=== PATIENT | female | born 1960 | race Caucasian/White ===

== ENCOUNTER → 2018-03-06 12:08 | Outpatient (CLI) | payer OTHER, BC, SELFPAY ==
--- NOTE | 2018-03-06 | DI.CT.S_ITS ---
PROCEDURE: CT CHEST W CON INDICATIONS: MASS OF THORACIC STRUCTURE TECHNIQUE: After the administration of intravenous contrast, 5 mm thick sections acquired from the pulmonary apices to the posterior costophrenic angles. 7 mm thick coronal and sagittal MIP reformats were acquired. For radiation dose reduction, the following was used: automated exposure control, adjustment of mA and/or kV according to patient size. COMPARISON: None. FINDINGS: Image quality: Excellent. Lungs and pleura: Trace air space opacities are present within the superior segment of the left lower lobe (series 3, image 26). These likely represent trace atelectasis or mild aspiration. No other acute air space opacities. No pulmonary nodules. No pleural effusion or pneumothorax. Mediastinum: Heart size is normal. No pericardial effusion. No mediastinal or hilar adenopathy by size criteria. Thoracic aorta and central pulmonary arteries are normal in size. Esophagus is normal in caliber. No hiatal hernia. Bones and chest wall: No suspicious bony lesions. No vertebral body compression fractures. No axillary or supraclavicular adenopathy by size criteria. Thyroid gland is unremarkable. An ill-defined low density cystic lesion is present anterior to the T4 vertebral body which measures 1.8 x 1.1 x 2.2 cm (series 2, image 15 and series 4, image 35). Prior images are not available for comparison. Abdomen: A low density cystic lesion is present within the posterior aspect of the right lower lobe. This is described on the prior CT report from 01/06/16. Visualized upper abdominal solid organs appear normal. Upper abdominal bowel loops are normal in caliber. IMPRESSION: 1. No acute cardiopulmonary findings. 2. Low-density cystic lesion anterior to the T4 vertebral body. No prior images are available for exact comparison; however based on the report, this finding is likely similar in size to the prior study. If prior images are uploaded at a later date, an addendum can be issued comparing the current study with the prior images. Dictated by: Marva Farrell M.D. on 03/06/2018 at 12:33 Approved by: Marva Farrell M.D. on 03/06/2018 at 12:44
== END ==
PROVIDERS: Family Provider Family Medicine; PCP Family Medicine; Visit Provider Family Medicine
DX: M48.8X4 Other specified spondylopathies, thoracic region (principal)
CPT/HCPCS: 71260

== ENCOUNTER → 2018-03-08 08:54 | Outpatient (CLI) | payer OTHER, BC, SELFPAY ==
--- NOTE | 2018-03-08 | DI.MRI.S_ITS ---
PROCEDURE: MR HEAD/BRAIN WO CON INDICATIONS: HEADACHES TECHNIQUE: Noncontrast axial T1 spin echo, axial T2 fast spin echo, sagittal and axial FLAIR, coronal T2 fast spin echo, axial gradient echo, axial diffusion and ADC through the brain. COMPARISON: None. FINDINGS: Image quality: Suboptimal evaluation due to signal void artifact originating from the right face. This severely degrades the diffusion-weighted and gradient-echo pulse sequences CSF Spaces: Basal cisterns are patent. No extra-axial fluid collections. Ventricles are normal in size and shape. Brain: No intracranial masses or hemorrhage. Incidentally noted low-lying cerebellar tonsils. No definite cord signal changes identified however limited evaluation given exam protocol and contrast-enhanced cervical spine MRI could be considered. Amador/white matter interface is normal. Brainstem appears normal. Diffusion-weighted images demonstrate no acute ischemic insult. No chronic ischemic insults. Normal intravascular flow voids are present. Skull and face: Calvarium has normal marrow signal. Orbits appear normal. Sinuses: Mastoids appear clear. There is mild left maxillary sinus disease, not well-visualized IMPRESSION: Low lying cerebellar tonsils. Please correlate clinically. Mild left maxillary sinus disease, not well-visualized and could be followed up with sinus CT as clinically warranted. Dictated by: Dilshad Monet M.D. on 03/08/2018 at 8:38 Approved by: Dilshad Monet M.D. on 03/08/2018 at 8:45
== END ==
PROVIDERS: PCP Family Medicine; Visit Provider Family Medicine
DX: R51 Headache (principal); J32.0 Chronic maxillary sinusitis
CPT/HCPCS: 70551

== ENCOUNTER → 2018-03-14 12:08 | Outpatient (CLI) | payer OTHER, BC, SELFPAY ==
--- NOTE | 2018-03-14 13:33 | PM.TREADMILL ---
Cardiac Stress Test Report Referral & Results Date Patient Seen: 03/14/18 Time Patient Seen: 13:33 Requesting provider: Ksenia Marcus Indication: Chest pain Rest ECG: Unremarkable Procedure Note: Today following both written and verbal informed consent the patient was exercised according to a standard Isra protocol patient went for a total of 7 min 3 sec achieving a maximum heart rate of 175 maximum systolic blood pressure of 170. This is approximately 10.1 METS. Exercise was terminated at this point because of targets were met and patient had difficulty keeping up. Patient was also given Cardiolite through a previously started Hep-Lock IV by the injection maintenance technician approximately 1 minute prior to the cessation of exercise. There are no ST segment changes noted Normal heart rate blood pressure response Rare PAC was identified in recovery only Functional aerobic impairment rated about 0 on the active scale Impression: No evidence of ischemia. Perfusion imaging to be reported separately Please note: Actual ECG tracings can be found in the PACS system.
--- NOTE | 2018-03-15 16:35 | DI.NM.S_ITS ---
DATE OF SERVICE: 03/14/2018 PROCEDURE: Exercise perfusion study. INDICATIONS: Exertional chest pain with underlying hyperlipidemia, family history of coronary artery disease. RADIOPHARMACEUTICAL: 25.0 mCi technetium-99m Myoview IV was injected at stress and 26.9 mCi technetium-99m Myoview IV was injected at rest. CARDIAC STRESS: Patient underwent exercise perfusion study under the supervision of an attending staff. She walked on Isra protocol for 7 minutes 03 seconds achieved 107% of target heart rate with normal blood pressure response as well as 10.1 METs of workload. Functional aerobic impairment, 0% on active scale. No significant symptoms were reported. Baseline EKG revealed sinus rhythm. During stress, there was a nonspecific ST-T changes. No convincing ischemic changes. Occasional PACs. No significant sustained arrhythmias. RAW DATA: There appears to be breast shadow seen. GATED STUDY: Stress ejection fraction 76% and stress LV ejection fraction 91%. No obvious wall motion abnormalities. No transient ischemic dilatation. TID ratio is 0.37, which is within normal limits. Resting end-diastolic volume is 75 mL. Lung/heart ratio is 0.29, which is within normal limits. MYOCARDIAL PERFUSION SCAN: Resting supine images revealed small-sized mildly decreased perfusion of mid and distal anterior wall, as well as distal anteroseptum. During stress supine, there was normal myocardial perfusion. During stress prone, there was mildly decreased perfusion of distal anteroseptum. CONCLUSION: I will call this study a normal myocardial perfusion study. Stress supine images did not reveal any convincing ischemia or infarction. Stress supine images appear better than resting supine images. Breast shadow seen on raw images. Normal wall motion goes against the diagnosis of previous myocardial infarction. Patient walked on Isra protocol for 7 minutes 03 seconds. As far as perfusion scan is concerned, this is a low-risk myocardial perfusion scan. Ninfa Carranza - MAC/thierno/ doc#: [id number]/job#: [id number] dd: 03/15/2018 12:32:00 dt: 03/15/2018 16:23:00 DICTATING MD/COPIES TO: Crissy Sanchez MD COPIES MNE: PALV
== END ==
PROVIDERS: PCP Family Medicine; Visit Provider Family Medicine
DX: R07.9 Chest pain, unspecified (principal)
CPT/HCPCS: 78452; 93016; 93017; 93018; A9502

== ENCOUNTER 2018-03-20 10:30 | Outpatient (RCR) | payer OTHER, BC, SELFPAY ==
--- NOTE | 2018-02-17 13:38 | PT.OIE ---
Current Diagnoses Headache (02/17/18) Provider Visit Care Team Role Provider Type Kwadwo Sharif MD Family Provider Non-Staff Primary Care Provider Specialty: Family Practice Address: [address], [address], [place], [address] Email: Ksenia Marcus DO Attending Provider Non-Staff Specialty: Family Practice Address: [address], [place], [address] Email: Physical Therapy Initial Evaluation PT-OP-A Visit Information Start: 02/17/18 08:41 Freq: Status: Active Protocol: Document 02/17/18 10:32 [facility] (Rec: 02/17/18 11:34 [facility] [id number]) Out-Patient Physical Therapy Visit Information Visit Information Visit Type Initial Evaluation Visit Start Time 10:30 Visit Stop Time 11:20 Total Visit Minutes 50 Visit Number 1 Number of ECONOMIC ADVISER Visits 0 PT-OP-B Current Condition Start: 02/17/18 08:41 Freq: Status: Active Protocol: Document 02/17/18 10:32 [facility] (Rec: 02/17/18 13:37 [facility] [id number]) Current Condition History of Current Condition Onset Date ~6 weeks ago Current Complaints AVERY & suboccipital pain History of Current Condition Pt reports suboccipital pain & AVERY on L side that goes to behind L eye. Pt reports a feeling of kind of dizzy like trying to center herself all the time. 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 Pain has not subsided with dec stress & dec driving & pt unsure when during a day or what caused her pain to start. Pt is mostly able to sleep but reports recently she has woken up d/t pain a couple of nights. Prior Treatments and Tests Xray performed Future Testing and Treatments Planned head MRI when pt gets back in 1 week Treatment Goals Patient/Caregiver Goals Get pain to go away especially before Mar 27 when she starts work again as she gets debilitated when AVERY get bad. Return to walks. PT-OP-C Subjective Start: 02/17/18 08:41 Freq: Status: Active Protocol: Document 02/17/18 10:32 [facility] (Rec: 02/17/18 13:37 [facility] [id number]) Patient Questionnaires Neck Disability Index NDI Score 50 Neck Disability Index Impairment 40 to 59% Impaired (Score 20- 29) OP-PT Pain Assessment Location Left Neck Pain Location Details L suboccipital into L head & behind eye Intensity 8 Scale Used Numeric (1 - 10) Description- Other AVERY & pain shoots up Frequency Constant Pain Duration intensifies with certain motions Pain Aggravating Factors Coughing Other Pain Aggravating Factors bending over, sneezing, lauging, straining Other Pain Alleviating Factors alieve (800 mg every 4 hours) PT-OP-J Posture/Palpation/Skin Start: 02/17/18 08:41 Freq: Status: Active Protocol: Document 02/17/18 10:32 [facility] (Rec: 02/17/18 13:38 [facility] [id number]) Posture Evaluation Comments Posture Comments fwd head & neck Palpation Assessment Location One Palpation Location L cervical region: paraspinals , scalenes, SCM, UT, LS Palpation Findings Soft Tissue Tightness Muscle Guarding Tenderness Palpation Details C1 R rot and L shear & C2 L rot & R shear PT-OP-K Range of Motion Start: 02/17/18 08:41 Freq: Status: Active Protocol: Document 02/17/18 10:32 [facility] (Rec: 02/17/18 11:34 [facility] [id number]) Cervical Spine Range of Motion Cervical Spine Active Degrees Testing Position Sitting Flexion 56 Extension 58 Rotation Left 55 Rotation Right 58 Lateral Flexion Left 28 Lateral Flexion Right 28 Comments pain returning to neutral from flex, pain with ext, stretching contralaterally with SB; stretch R with rotation R PT-OP-L Special Tests Start: 02/17/18 08:41 Freq: Status: Active Protocol: Document 02/17/18 10:32 [facility] (Rec: 02/17/18 11:34 [facility] [id number]) Special Tests Cervical Spine Special Tests Spurling's Test Test Results neg Vertebral Artery Test Results neg B (pain suboccipital only) Alar Ligament Test Results neg Neural Special Tests- Upper Body Upper Limb Tension Test Test Results passive abd Comments 130 L; 150 R PT-OP-M Strength Start: 02/17/18 08:41 Freq: Status: Active Protocol: Document 02/17/18 10:32 [facility] (Rec: 02/17/18 11:34 [facility] [id number]) Shoulder Strength Shoulder Manual Muscle Testing Right Flexion 5 Normal Extension 5 Normal Abduction (C5) 5 Normal Adduction 5 Normal External Rotation 5 Normal Internal Rotation 5 Normal Horizontal Abduction 5 Normal Horizontal Adduction 5 Normal Left Flexion 5 Normal Extension 5 Normal Abduction (C5) 5 Normal Adduction 5 Normal External Rotation 5 Normal Internal Rotation 5 Normal Horizontal Abduction 5 Normal Horizontal Adduction 5 Normal PT-OP-Q Treatments Start: 02/17/18 08:41 Freq: Status: Active Protocol: Document 02/17/18 10:32 [facility] (Rec: 02/17/18 13:37 [facility] [id number]) Therapeutic Exercises Supine Exercises 1 Supine Exercise Name cervical retraction Side bilateral Sitting Exercises 1 Sitting Exercise Name LS, UT & scalene stretches PT-OP-T Assessment and Plan Start: 02/17/18 08:41 Freq: Status: Active Protocol: Document 02/17/18 10:32 [facility] (Rec: 02/17/18 13:37 [facility] [id number]) Physical Therapy Assessment Rehab Potential Rehabilitation Potential Good Evaluation Complexity Number of Personal Factors/Comorbidities 1-2 Number of Body Systems Impaired 4 or More Clinical Presentation at Evaluation Evolving Impairments Impairments Activity Tolerance Pain Posture ROM Soft Tissue Mobility Strength Goals Three Impairment functional tasks Certified Personal Chef Goal (LTG) Pt able to bend over without pain in neck & head LTG Duration 04/20/18 Two Impairment AVERY daily Short Term Goal (STG) AVERY 3x/week STG Duration 03/20/18 Certified Personal Chef Goal (LTG) no AVERY for 2 weeks LTG Duration 04/20/18 One Impairment ROM [facility] Goal (LTG) Full ROM to allow pt to look down and do normal tasks. LTG Duration 04/20/18 Physical Therapy Plan Frequency and Duration Frequency of Treatment 2x/Week Duration of Treatment 2 months Plan of Care Start Date 02/17/18 Plan of Care End Date 04/20/18 Therapeutic Interventions Therapeutic Interventions Home Exercise Program Joint Mobilizations Manual Therapy Self-Care/Home Management Soft Tissue Mobilization Taping Therapeutic Exercises Modalities Cold Pack/Ice Massage Electric Stimulation Hot Packs Ultrasound Next Visit Focus/Plan Next Note Type Treatment Note Next Visit Plan Soft tissue cervical spine; once cleared with MRI start upper cervical mobilizaitons
--- NOTE | 2018-02-17 13:39 | PT.OPPOC ---
Current Diagnoses Headache (02/17/18) Provider Visit Care Team Role Provider Type Kwadwo Sharif MD Family Provider Non-Staff Primary Care Provider Specialty: Family Practice Address: [address], [address], [place], [address] Email: Ksenia Marcus DO Attending Provider Non-Staff Specialty: [facility] Practice Address: [address], [place], [address] Email: Plan Of Care PT-OP-T Assessment and Plan Start: 02/17/18 08:41 Freq: Status: Active Protocol: Document 02/17/18 10:32 [facility] (Rec: 02/17/18 13:37 [facility] [id number]) Physical Therapy Assessment Rehab Potential Rehabilitation Potential Good Evaluation Complexity Number of Personal Factors/Comorbidities 1-2 Number of Body Systems Impaired 4 or More Clinical Presentation at Evaluation Evolving Impairments Impairments Activity Tolerance Pain Posture ROM Soft Tissue Mobility Strength Goals Three Impairment functional tasks Flag Maker Goal (LTG) Pt able to bend over without pain in neck & head LTG Duration 04/20/18 Two Impairment AVERY daily Short Term Goal (STG) AVERY 3x/week STG Duration 03/20/18 [facility] Goal (LTG) no AVERY for 2 weeks LTG Duration 04/20/18 One Impairment ROM Senior Care Goal (LTG) Full ROM to allow pt to look down and do normal tasks. LTG Duration 04/20/18 Physical Therapy Plan Frequency and Duration Frequency of Treatment 2x/Week Duration of Treatment 2 months Plan of Care Start Date 02/17/18 Plan of Care End Date 04/20/18 Therapeutic Interventions Therapeutic Interventions Home Exercise Program Joint Mobilizations Manual Therapy Self-Care/Home Management Soft Tissue Mobilization Taping Therapeutic Exercises Modalities Cold Pack/Ice Massage Electric Stimulation Hot Packs Ultrasound Next Visit Focus/Plan Next Note Type Treatment Note Next Visit Plan Soft tissue cervical spine; once cleared with MRI start upper cervical mobilizaitons Plan of Care Dates Plan of Care Start Date 02/17/18 Plan of Care End Date 04/20/18 Please Sign and Return: I have reviewed this Plan of Care and certify that the skilled therapy services above are required to meet the patient?s needs. Physician Signature Date Printed Name and Credentials Clinical Instructor Signature Printed Name and Credentials
--- NOTE | 2018-02-28 09:50 | PT.OTN ---
Current Diagnoses Headache (02/28/18) Physical Therapy Treatment Note PT-OP-A Visit Information Start: 02/17/18 08:41 Freq: Status: Active Protocol: Document 02/28/18 09:33 [facility] (Rec: 02/28/18 09:50 [facility] [id number]) Out-Patient Physical Therapy Visit Information Visit Information Visit Type Treatment Note Visit Start Time 09:05 Visit Stop Time 09:45 Total Visit Minutes 40 Visit Number 2 PT-OP-B Current Condition Start: 02/17/18 08:41 Freq: Status: Active Protocol: Document 02/17/18 10:32 [facility] (Rec: 02/17/18 13:37 [facility] [id number]) Current Condition History of Current Condition Onset Date ~6 weeks ago Current Complaints AVERY & suboccipital pain History of Current Condition Pt reports suboccipital pain & AVERY on L side that goes to behind L eye. Pt reports a feeling of kind of dizzy like trying to center herself all the time. 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 Pain has not subsided with dec stress & dec driving & pt unsure when during a day or what caused her pain to start. Pt is mostly able to sleep but reports recently she has woken up d/t pain a couple of nights. Prior Treatments and Tests Xray performed Future Testing and Treatments Planned head MRI when pt gets back in 1 week Treatment Goals Patient/Caregiver Goals Get pain to go away especially before Mar 27 when she starts work again as she gets debilitated when AVERY get bad. Return to walks. PT-OP-C Subjective Start: 02/17/18 08:41 Freq: Status: Active Protocol: Document 02/28/18 09:33 [facility] (Rec: 02/28/18 09:50 [facility] [id number]) OP-PT Subjective Patient Comments Patient Comments Reports she only did her exercises a little on vacation . Notes she took a lot of alieve PT-OP-J Posture/Palpation/Skin Start: 02/17/18 08:41 Freq: Status: Active Protocol: Document 02/17/18 10:32 [facility] (Rec: 02/17/18 13:38 [facility] [id number]) Posture Evaluation Comments Posture Comments fwd head & neck Palpation Assessment Location One Palpation Location L cervical region: paraspinals , scalenes, SCM, UT, LS Palpation Findings Soft Tissue Tightness Muscle Guarding Tenderness Palpation Details C1 R rot and L shear & C2 L rot & R shear PT-OP-K Range of Motion Start: 02/17/18 08:41 Freq: Status: Active Protocol: Document 02/17/18 10:32 [facility] (Rec: 02/17/18 11:34 [facility] [id number]) Cervical Spine Range of Motion Cervical Spine Active Degrees Testing Position Sitting Flexion 56 Extension 58 Rotation Left 55 Rotation Right 58 Lateral Flexion Left 28 Lateral Flexion Right 28 Comments pain returning to neutral from flex, pain with ext, stretching contralaterally with SB; stretch R with rotation R PT-OP-L Special Tests Start: 02/17/18 08:41 Freq: Status: Active Protocol: Document 02/17/18 10:32 [facility] (Rec: 02/17/18 11:34 [facility] [id number]) Special Tests Cervical Spine Special Tests Spurling's Test Test Results neg Vertebral Artery Test Results neg B (pain suboccipital only) Alar Ligament Test Results neg Neural Special Tests- Upper Body Upper Limb Tension Test Test Results passive abd Comments 130 L; 150 R PT-OP-M Strength Start: 02/17/18 08:41 Freq: Status: Active Protocol: Document 02/17/18 10:32 [facility] (Rec: 02/17/18 11:34 [facility] [id number]) Shoulder Strength Shoulder Manual Muscle Testing Right Flexion 5 Normal Extension 5 Normal Abduction (C5) 5 Normal Adduction 5 Normal External Rotation 5 Normal Internal Rotation 5 Normal Horizontal Abduction 5 Normal Horizontal Adduction 5 Normal Left Flexion 5 Normal Extension 5 Normal Abduction (C5) 5 Normal Adduction 5 Normal External Rotation 5 Normal Internal Rotation 5 Normal Horizontal Abduction 5 Normal Horizontal Adduction 5 Normal PT-OP-Q Treatments Start: 02/17/18 08:41 Freq: Status: Active Protocol: Document 02/28/18 09:33 [facility] (Rec: 02/28/18 09:50 [facility] [id number]) Therapeutic Exercises Supine Exercises 3 Supine Exercise Name axial elongation 2 Supine Exercise Name foam roll: Habd, flex, abd Side bilateral Reps/Minutes 10 each Sidelying Exercises 1 Sidelying Exercise Name roll & reach Reps/Minutes 5 Sitting Exercises 1 Sitting Exercise Name LS, UT & scalene stretches Standing Exercises 1 Standing Exercise Name corner pec stretch Reps/Minutes 30 sec hold Manual Therapy Treatment Soft Tissue Mobilization 2 Body Location SOR Mobilization Type Sustained Pressure Intensity/Depth Moderate 1 Body Location LS, UT, scalenes Mobilization Type Rolling Intensity/Depth Moderate Joint Mobilizations 1 Joint 1st rib Direction caudal Body Position Sitting Comments FM w/ SB PT-OP-T Assessment and Plan Start: 02/17/18 08:41 Freq: Status: Active Protocol: Document 02/28/18 09:33 [facility] (Rec: 02/28/18 09:50 [facility] [id number]) Physical Therapy Assessment Goals Three Impairment functional tasks [facility] Goal (LTG) Pt able to bend over without pain in neck & head LTG Duration 04/20/18 Two Impairment AVERY daily Short Term Goal (STG) AVERY 3x/week STG Duration 03/20/18 Stone Carver Goal (LTG) no AVERY for 2 weeks LTG Duration 04/20/18 One Impairment ROM [facility] Goal (LTG) Full ROM to allow pt to look down and do normal tasks. LTG Duration 04/20/18 Assessment Summary Assessment Pt required min cueing for old exercises and had good stretches with new exercises, but no pain. Pt had tightness in B cervical mm today. Physical Therapy Plan Frequency and Duration Frequency of Treatment 2x/Week Duration of Treatment 2 months Plan of Care Start Date 02/17/18 Plan of Care End Date 04/20/18 Next Visit Focus/Plan Next Note Type Treatment Note Next Visit Plan Soft tissue cervical spine; once cleared with MRI start upper cervical mobilizaitons; cranial fascial release
--- NOTE | 2018-03-03 16:27 | PT.OTN ---
Current Diagnoses Headache (03/03/18) Physical Therapy Treatment Note PT-OP-A Visit Information Start: 02/17/18 08:41 Freq: Status: Active Protocol: Document 03/03/18 15:15 [facility] (Rec: 03/03/18 16:27 [facility] [id number]) Out-Patient Physical Therapy Visit Information Visit Information Visit Type Treatment Note Visit Start Time 15:20 Visit Stop Time 16:05 Total Visit Minutes 45 Visit Number 3 Number of HEALTHCARE APPLICATIONS ANALYST Visits 0 PT-OP-B Current Condition Start: 02/17/18 08:41 Freq: Status: Active Protocol: Document 02/17/18 10:32 [facility] (Rec: 02/17/18 13:37 [facility] [id number]) Current Condition History of Current Condition Onset Date ~6 weeks ago Current Complaints AVERY & suboccipital pain History of Current Condition Pt reports suboccipital pain & AVERY on L side that goes to behind L eye. Pt reports a feeling of kind of dizzy like trying to center herself all the time. 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 Pain has not subsided with dec stress & dec driving & pt unsure when during a day or what caused her pain to start. Pt is mostly able to sleep but reports recently she has woken up d/t pain a couple of nights. Prior Treatments and Tests Xray performed Future Testing and Treatments Planned head MRI when pt gets back in 1 week Treatment Goals Patient/Caregiver Goals Get pain to go away especially before Mar 27 when she starts work again as she gets debilitated when AVERY get bad. Return to walks. PT-OP-C Subjective Start: 02/17/18 08:41 Freq: Status: Active Protocol: Document 03/03/18 15:15 [facility] (Rec: 03/03/18 16:27 [facility] [id number]) OP-PT Subjective Patient Comments Patient Comments More compliant to her HEP, trying to be more aware of her posture, not sure if helping. Pain/AVERY 10 today. PT-OP-J Posture/Palpation/Skin Start: 02/17/18 08:41 Freq: Status: Active Protocol: Document 02/17/18 10:32 [facility] (Rec: 02/17/18 13:38 [facility] [id number]) Posture Evaluation Comments Posture Comments fwd head & neck Palpation Assessment Location One Palpation Location L cervical region: paraspinals , scalenes, SCM, UT, LS Palpation Findings Soft Tissue Tightness Muscle Guarding Tenderness Palpation Details C1 R rot and L shear & C2 L rot & R shear PT-OP-K Range of Motion Start: 02/17/18 08:41 Freq: Status: Active Protocol: Document 02/17/18 10:32 [facility] (Rec: 02/17/18 11:34 [facility] [id number]) Cervical Spine Range of Motion Cervical Spine Active Degrees Testing Position Sitting Flexion 56 Extension 58 Rotation Left 55 Rotation Right 58 Lateral Flexion Left 28 Lateral Flexion Right 28 Comments pain returning to neutral from flex, pain with ext, stretching contralaterally with SB; stretch R with rotation R PT-OP-L Special Tests Start: 02/17/18 08:41 Freq: Status: Active Protocol: Document 02/17/18 10:32 [facility] (Rec: 02/17/18 11:34 [facility] [id number]) Special Tests Cervical Spine Special Tests Spurling's Test Test Results neg Vertebral Artery Test Results neg B (pain suboccipital only) Alar Ligament Test Results neg Neural Special Tests- Upper Body Upper Limb Tension Test Test Results passive abd Comments 130 L; 150 R PT-OP-M Strength Start: 02/17/18 08:41 Freq: Status: Active Protocol: Document 02/17/18 10:32 [facility] (Rec: 02/17/18 11:34 [facility] [id number]) Shoulder Strength Shoulder Manual Muscle Testing Right Flexion 5 Normal Extension 5 Normal Abduction (C5) 5 Normal Adduction 5 Normal External Rotation 5 Normal Internal Rotation 5 Normal Horizontal Abduction 5 Normal Horizontal Adduction 5 Normal Left Flexion 5 Normal Extension 5 Normal Abduction (C5) 5 Normal Adduction 5 Normal External Rotation 5 Normal Internal Rotation 5 Normal Horizontal Abduction 5 Normal Horizontal Adduction 5 Normal PT-OP-Q Treatments Start: 02/17/18 08:41 Freq: Status: Active Protocol: Document 03/03/18 15:15 [facility] (Rec: 03/03/18 16:27 [facility] [id number]) Cardio Equipment Upper Body Ergometer (UBE) Duration (Minutes) 4 RPM 90 Other fwd/bck Therapeutic Exercises Supine Exercises 3 Supine Exercise Name axial elongation Sidelying Exercises 1 Sidelying Exercise Name roll & reach Reps/Minutes 5 Comments with gentle manual cues for segmental mvmt Sitting Exercises 1 Sitting Exercise Name LS, UT & scalene stretches Standing Exercises 3 Standing Exercise Name rows, shld ext Equipment Used L1 TB Reps/Minutes 10x Comments verbal and manual cues 2 Standing Exercise Name postural isometric Equipment Used wall Reps/Minutes 5x Manual Therapy Treatment Soft Tissue Mobilization 4 Body Location cervical spine Mobilization Type Rolling Intensity/Depth gentle Body Position Supine 3 Body Location manual pec major stretch 2 Body Location SOR Mobilization Type Sustained Pressure Intensity/Depth Moderate 1 Body Location LS, UT, scalenes Mobilization Type Rolling Intensity/Depth Moderate Joint Mobilizations 2 Joint T2-T8 Direction PA Grade II Body Position Prone Comments prone pillow PT-OP-T Assessment and Plan Start: 02/17/18 08:41 Freq: Status: Active Protocol: Document 03/03/18 15:15 [facility] (Rec: 03/03/18 16:27 [facility] [id number]) Physical Therapy Assessment Assessment Summary Assessment Reports SOR feels good, was verbally instructed in use of tennis balls. Maybe a little better after treatment. Tightness left greater than right thoracic musculature with decreased joint movement on left. Physical Therapy Plan Frequency and Duration Frequency of Treatment 2x/Week Duration of Treatment 2 months Plan of Care Start Date 02/17/18 Plan of Care End Date 04/20/18 Therapeutic Interventions Therapeutic Interventions Home Exercise Program Joint Mobilizations Manual Therapy Self-Care/Home Management Soft Tissue Mobilization Taping Therapeutic Exercises Modalities Cold Pack/Ice Massage Electric Stimulation Hot Packs Ultrasound Next Visit Focus/Plan Next Note Type Treatment Note Next Visit Plan Assess response to last treatment, review new ex and issue handout and theraband if christian well.
--- NOTE | 2018-03-10 16:27 | PT.OTN ---
Current Diagnoses Headache (03/10/18) Physical Therapy Treatment Note PT-OP-A Visit Information Start: 02/17/18 08:41 Freq: Status: Active Protocol: Document 03/10/18 15:17 [facility] (Rec: 03/10/18 16:24 [facility] [id number]) Out-Patient Physical Therapy Visit Information Visit Information Visit Type Treatment Note Visit Start Time 15:17 Visit Stop Time 16:07 Total Visit Minutes 50 Visit Number 4 Number of NAPPER TENDER Visits 0 PT-OP-B Current Condition Start: 02/17/18 08:41 Freq: Status: Active Protocol: Document 02/17/18 10:32 [facility] (Rec: 02/17/18 13:37 [facility] [id number]) Current Condition History of Current Condition Onset Date ~6 weeks ago Current Complaints AVERY & suboccipital pain History of Current Condition Pt reports suboccipital pain & AVERY on L side that goes to behind L eye. Pt reports a feeling of kind of dizzy like trying to center herself all the time. 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 Pain has not subsided with dec stress & dec driving & pt unsure when during a day or what caused her pain to start. Pt is mostly able to sleep but reports recently she has woken up d/t pain a couple of nights. Prior Treatments and Tests Xray performed Future Testing and Treatments Planned head MRI when pt gets back in 1 week Treatment Goals Patient/Caregiver Goals Get pain to go away especially before Mar 27 when she starts work again as she gets debilitated when AVERY get bad. Return to walks. PT-OP-C Subjective Start: 02/17/18 08:41 Freq: Status: Active Protocol: Document 03/10/18 15:17 [facility] (Rec: 03/10/18 16:08 [facility] [id number]) OP-PT Subjective Patient Comments Patient Comments Reports taking less Ibuprofen, pain not quite as intense. Sees physician on 03/23/18, has already talked with nurse who discussed results of tests: regarding cyst T4 which appears to be same size as previously tested, and low- lying cerebellar tonsils which could be causing symptoms. Having stress test next week. PT-OP-J Posture/Palpation/Skin Start: 02/17/18 08:41 Freq: Status: Active Protocol: Document 02/17/18 10:32 [facility] (Rec: 02/17/18 13:38 [facility] [id number]) Posture Evaluation Comments Posture Comments fwd head & neck Palpation Assessment Location One Palpation Location L cervical region: paraspinals , scalenes, SCM, UT, LS Palpation Findings Soft Tissue Tightness Muscle Guarding Tenderness Palpation Details C1 R rot and L shear & C2 L rot & R shear PT-OP-K Range of Motion Start: 02/17/18 08:41 Freq: Status: Active Protocol: Document 02/17/18 10:32 [facility] (Rec: 02/17/18 11:34 [facility] [id number]) Cervical Spine Range of Motion Cervical Spine Active Degrees Testing Position Sitting Flexion 56 Extension 58 Rotation Left 55 Rotation Right 58 Lateral Flexion Left 28 Lateral Flexion Right 28 Comments pain returning to neutral from flex, pain with ext, stretching contralaterally with SB; stretch R with rotation R PT-OP-L Special Tests Start: 02/17/18 08:41 Freq: Status: Active Protocol: Document 02/17/18 10:32 [facility] (Rec: 02/17/18 11:34 [facility] [id number]) Special Tests Cervical Spine Special Tests Spurling's Test Test Results neg Vertebral Artery Test Results neg B (pain suboccipital only) Alar Ligament Test Results neg Neural Special Tests- Upper Body Upper Limb Tension Test Test Results passive abd Comments 130 L; 150 R PT-OP-M Strength Start: 02/17/18 08:41 Freq: Status: Active Protocol: Document 02/17/18 10:32 [facility] (Rec: 02/17/18 11:34 [facility] [id number]) Shoulder Strength Shoulder Manual Muscle Testing Right Flexion 5 Normal Extension 5 Normal Abduction (C5) 5 Normal Adduction 5 Normal External Rotation 5 Normal Internal Rotation 5 Normal Horizontal Abduction 5 Normal Horizontal Adduction 5 Normal Left Flexion 5 Normal Extension 5 Normal Abduction (C5) 5 Normal Adduction 5 Normal External Rotation 5 Normal Internal Rotation 5 Normal Horizontal Abduction 5 Normal Horizontal Adduction 5 Normal PT-OP-Q Treatments Start: 02/17/18 08:41 Freq: Status: Active Protocol: Document 03/10/18 15:17 [facility] (Rec: 03/10/18 16:24 [facility] [id number]) Cardio Equipment Upper Body Ergometer (UBE) Duration (Minutes) 4 RPM 90 Other fwd/bck Therapeutic Exercises Supine Exercises 3 Supine Exercise Name axial elongation 2 Supine Exercise Name foam roll: Habd, flex, abd Side bilateral Reps/Minutes 10 each 1 Supine Exercise Name cervical retraction Side bilateral Sidelying Exercises 1 Sidelying Exercise Name roll & reach Reps/Minutes 5 Comments with gentle manual cues for segmental mvmt Sitting Exercises 1 Comments doing as HEP Standing Exercises 3 Standing Exercise Name rows, shld ext Equipment Used L1 TB Reps/Minutes 10x Comments verbal and manual cues 2 Standing Exercise Name postural isometric Equipment Used wall Reps/Minutes 5x 1 Comments HEP Manual Therapy Treatment Soft Tissue Mobilization 2 Body Location SOR Mobilization Type Sustained Pressure Intensity/Depth Moderate 1 Body Location LS, UT, scalenes Mobilization Type Rolling Intensity/Depth Moderate Self-Care/Home Management Treatment Education Patient Education Home Exercise Program Other Education issued updated written HEP, reviewed use of tennis balls for SOR. PT-OP-T Assessment and Plan Start: 02/17/18 08:41 Freq: Status: Active Protocol: Document 03/10/18 15:17 [facility] (Rec: 03/10/18 16:24 [facility] [id number]) Physical Therapy Assessment Assessment Summary Assessment Some progress with pain, though persists. MRI indicated low-lying cerebellar tonsils which could be a factor in her symptoms. Patient reports some relief with SOR and gentle manual CTx . May benefit from mechanical CTx if cleared by physician. Physical Therapy Plan Frequency and Duration Frequency of Treatment 2x/Week Duration of Treatment 2 months Plan of Care Start Date 02/17/18 Plan of Care End Date 04/20/18 Therapeutic Interventions Therapeutic Interventions Home Exercise Program Joint Mobilizations Manual Therapy Self-Care/Home Management Soft Tissue Mobilization Taping Therapeutic Exercises Modalities Cold Pack/Ice Massage Electric Stimulation Hot Packs Ultrasound Next Visit Focus/Plan Next Note Type Treatment Note Next Visit Plan Request approval for mechanical CTx, continue with ther ex, manual therapy, HEP progression as tolerated.
--- NOTE | 2018-03-17 11:27 | PT.OTN ---
Current Diagnoses Headache (03/17/18) Physical Therapy Treatment Note PT-OP-A Visit Information Start: 02/17/18 08:41 Freq: Status: Active Protocol: Document 03/17/18 10:23 [facility] (Rec: 03/17/18 11:27 [facility] [id number]) Out-Patient Physical Therapy Visit Information Visit Information Visit Type Treatment Note Visit Start Time 10:30 Visit Stop Time 11:15 Total Visit Minutes 45 Visit Number 5 Number of TRUSS MAKER Visits 0 PT-OP-B Current Condition Start: 02/17/18 08:41 Freq: Status: Active Protocol: Document 02/17/18 10:32 [facility] (Rec: 02/17/18 13:37 [facility] [id number]) Current Condition History of Current Condition Onset Date ~6 weeks ago Current Complaints AVERY & suboccipital pain History of Current Condition Pt reports suboccipital pain & AVERY on L side that goes to behind L eye. Pt reports a feeling of kind of dizzy like trying to center herself all the time. 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 Pain has not subsided with dec stress & dec driving & pt unsure when during a day or what caused her pain to start. Pt is mostly able to sleep but reports recently she has woken up d/t pain a couple of nights. Prior Treatments and Tests Xray performed Future Testing and Treatments Planned head MRI when pt gets back in 1 week Treatment Goals Patient/Caregiver Goals Get pain to go away especially before Mar 27 when she starts work again as she gets debilitated when AVERY get bad. Return to walks. PT-OP-C Subjective Start: 02/17/18 08:41 Freq: Status: Active Protocol: Document 03/17/18 10:23 [facility] (Rec: 03/17/18 11:27 [facility] [id number]) OP-PT Subjective Patient Comments Patient Comments Last night her AVERY woke her up, but is not taking advil as often. Bending over is less painful, but constant head pressure still. [place] pain behind eyes when moving eyes. PT-OP-J Posture/Palpation/Skin Start: 02/17/18 08:41 Freq: Status: Active Protocol: Document 02/17/18 10:32 [facility] (Rec: 02/17/18 13:38 [facility] [id number]) Posture Evaluation Comments Posture Comments fwd head & neck Palpation Assessment Location One Palpation Location L cervical region: paraspinals , scalenes, SCM, UT, LS Palpation Findings Soft Tissue Tightness Muscle Guarding Tenderness Palpation Details C1 R rot and L shear & C2 L rot & R shear PT-OP-K Range of Motion Start: 02/17/18 08:41 Freq: Status: Active Protocol: Document 02/17/18 10:32 [facility] (Rec: 02/17/18 11:34 [facility] [id number]) Cervical Spine Range of Motion Cervical Spine Active Degrees Testing Position Sitting Flexion 56 Extension 58 Rotation Left 55 Rotation Right 58 Lateral Flexion Left 28 Lateral Flexion Right 28 Comments pain returning to neutral from flex, pain with ext, stretching contralaterally with SB; stretch R with rotation R PT-OP-L Special Tests Start: 02/17/18 08:41 Freq: Status: Active Protocol: Document 02/17/18 10:32 [facility] (Rec: 02/17/18 11:34 [facility] [id number]) Special Tests Cervical Spine Special Tests Spurling's Test Test Results neg Vertebral Artery Test Results neg B (pain suboccipital only) Alar Ligament Test Results neg Neural Special Tests- Upper Body Upper Limb Tension Test Test Results passive abd Comments 130 L; 150 R PT-OP-M Strength Start: 02/17/18 08:41 Freq: Status: Active Protocol: Document 02/17/18 10:32 [facility] (Rec: 02/17/18 11:34 [facility] [id number]) Shoulder Strength Shoulder Manual Muscle Testing Right Flexion 5 Normal Extension 5 Normal Abduction (C5) 5 Normal Adduction 5 Normal External Rotation 5 Normal Internal Rotation 5 Normal Horizontal Abduction 5 Normal Horizontal Adduction 5 Normal Left Flexion 5 Normal Extension 5 Normal Abduction (C5) 5 Normal Adduction 5 Normal External Rotation 5 Normal Internal Rotation 5 Normal Horizontal Abduction 5 Normal Horizontal Adduction 5 Normal PT-OP-Q Treatments Start: 02/17/18 08:41 Freq: Status: Active Protocol: Document 03/17/18 10:23 [facility] (Rec: 03/17/18 11:27 [facility] [id number]) Cardio Equipment Upper Body Ergometer (UBE) Duration (Minutes) 4 RPM 90 Other fwd/bck Therapeutic Exercises Supine Exercises 3 Supine Exercise Name axial elongation 2 Supine Exercise Name foam roll: Habd, flex, abd Side bilateral Reps/Minutes 10 each Comments HEP 1 Supine Exercise Name cervical retraction Side bilateral Comments HEP Sidelying Exercises 1 Sidelying Exercise Name roll & reach Reps/Minutes 5 Comments HEP Standing Exercises 3 Standing Exercise Name rows, shld ext Equipment Used L1 TB Reps/Minutes 10x Comments verbal and manual cues 2 Standing Exercise Name postural roll up w/90/90 ER Equipment Used wall Reps/Minutes 10 Manual Therapy Treatment Soft Tissue Mobilization 4 Body Location cervical spine Mobilization Type Rolling Intensity/Depth Moderate Body Position Supine 2 Body Location SOR Mobilization Type Sustained Pressure Intensity/Depth Moderate 1 Body Location LS, UT, scalenes Mobilization Type Rolling Intensity/Depth Moderate Joint Mobilizations 1 Joint 1st rib Direction caudal Body Position Supine Comments FM w/ SB PT-OP-T Assessment and Plan Start: 02/17/18 08:41 Freq: Status: Active Protocol: Document 03/17/18 10:23 [facility] (Rec: 03/17/18 11:27 [facility] [id number]) Physical Therapy Assessment Goals Three Impairment functional tasks [facility] Goal (LTG) Pt able to bend over without pain in neck & head LTG Duration 04/20/18 Two Impairment AVERY daily Short Term Goal (STG) AVERY 3x/week STG Duration 03/20/18 [facility] Goal (LTG) no AVERY for 2 weeks LTG Duration 04/20/18 One Impairment ROM Industrial Radiographer Goal (LTG) Full ROM to allow pt to look down and do normal tasks. LTG Duration 04/20/18 Assessment Summary Assessment Pt had inc tightness in R>L side. Pt able do most exercises with min cueing. Added postural roll up for postural stability. Physical Therapy Plan Frequency and Duration Frequency of Treatment 2x/Week Duration of Treatment 2 months Plan of Care Start Date 02/17/18 Plan of Care End Date 04/20/18 Next Visit Focus/Plan Next Note Type Treatment Note Next Visit Plan Request approval for mechanical CTx, continue with ther ex, manual therapy, HEP progression as tolerated.
--- NOTE | 2018-03-20 11:27 | PT.OTN ---
Current Diagnoses Headache (03/20/18) Physical Therapy Treatment Note PT-OP-A Visit Information Start: 02/17/18 08:41 Freq: Status: Active Protocol: Document 03/20/18 10:36 [facility] (Rec: 03/20/18 11:27 [facility] [id number]) Out-Patient Physical Therapy Visit Information Visit Information Visit Type Treatment Note Visit Start Time 10:35 Visit Stop Time 11:15 Total Visit Minutes 40 Visit Number 6 Number of FLIGHT SURVEYOR Visits 0 PT-OP-B Current Condition Start: 02/17/18 08:41 Freq: Status: Active Protocol: Document 02/17/18 10:32 [facility] (Rec: 02/17/18 13:37 [facility] [id number]) Current Condition History of Current Condition Onset Date ~6 weeks ago Current Complaints AVERY & suboccipital pain History of Current Condition Pt reports suboccipital pain & AVERY on L side that goes to behind L eye. Pt reports a feeling of kind of dizzy like trying to center herself all the time. 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 Pain has not subsided with dec stress & dec driving & pt unsure when during a day or what caused her pain to start. Pt is mostly able to sleep but reports recently she has woken up d/t pain a couple of nights. Prior Treatments and Tests Xray performed Future Testing and Treatments Planned head MRI when pt gets back in 1 week Treatment Goals Patient/Caregiver Goals Get pain to go away especially before Mar 27 when she starts work again as she gets debilitated when AVERY get bad. Return to walks. PT-OP-C Subjective Start: 02/17/18 08:41 Freq: Status: Active Protocol: Document 03/20/18 10:36 [facility] (Rec: 03/20/18 11:27 [facility] [id number]) OP-PT Subjective Patient Comments Patient Comments Less sharp left headed pain. Overall pressure AVERY like balloon is blowing up in head. PT-OP-J Posture/Palpation/Skin Start: 02/17/18 08:41 Freq: Status: Active Protocol: Document 02/17/18 10:32 [facility] (Rec: 02/17/18 13:38 [facility] [id number]) Posture Evaluation Comments Posture Comments fwd head & neck Palpation Assessment Location One Palpation Location L cervical region: paraspinals , scalenes, SCM, UT, LS Palpation Findings Soft Tissue Tightness Muscle Guarding Tenderness Palpation Details C1 R rot and L shear & C2 L rot & R shear PT-OP-K Range of Motion Start: 02/17/18 08:41 Freq: Status: Active Protocol: Document 02/17/18 10:32 [facility] (Rec: 02/17/18 11:34 [facility] [id number]) Cervical Spine Range of Motion Cervical Spine Active Degrees Testing Position Sitting Flexion 56 Extension 58 Rotation Left 55 Rotation Right 58 Lateral Flexion Left 28 Lateral Flexion Right 28 Comments pain returning to neutral from flex, pain with ext, stretching contralaterally with SB; stretch R with rotation R PT-OP-L Special Tests Start: 02/17/18 08:41 Freq: Status: Active Protocol: Document 02/17/18 10:32 [facility] (Rec: 02/17/18 11:34 [facility] [id number]) Special Tests Cervical Spine Special Tests Spurling's Test Test Results neg Vertebral Artery Test Results neg B (pain suboccipital only) Alar Ligament Test Results neg Neural Special Tests- Upper Body Upper Limb Tension Test Test Results passive abd Comments 130 L; 150 R PT-OP-M Strength Start: 02/17/18 08:41 Freq: Status: Active Protocol: Document 02/17/18 10:32 [facility] (Rec: 02/17/18 11:34 [facility] [id number]) Shoulder Strength Shoulder Manual Muscle Testing Right Flexion 5 Normal Extension 5 Normal Abduction (C5) 5 Normal Adduction 5 Normal External Rotation 5 Normal Internal Rotation 5 Normal Horizontal Abduction 5 Normal Horizontal Adduction 5 Normal Left Flexion 5 Normal Extension 5 Normal Abduction (C5) 5 Normal Adduction 5 Normal External Rotation 5 Normal Internal Rotation 5 Normal Horizontal Abduction 5 Normal Horizontal Adduction 5 Normal PT-OP-Q Treatments Start: 02/17/18 08:41 Freq: Status: Active Protocol: Document 03/20/18 10:36 [facility] (Rec: 03/20/18 11:27 [facility] [id number]) Cardio Equipment Upper Body Ergometer (UBE) Duration (Minutes) 5 RPM 90 Other fwd/bck Therapeutic Exercises Supine Exercises 3 Supine Exercise Name axial elongation Standing Exercises 3 Standing Exercise Name rows, shld ext Equipment Used L2 TB Reps/Minutes 10x Comments verbal and manual cues 2 Standing Exercise Name postural roll up w/90/90 ER Equipment Used wall Reps/Minutes 10 Manual Therapy Treatment Soft Tissue Mobilization 4 Body Location cervical spine Mobilization Type Rolling Intensity/Depth Moderate Body Position Supine 2 Body Location SOR Mobilization Type Sustained Pressure Intensity/Depth Moderate 1 Body Location LS, UT, scalenes Mobilization Type Rolling Intensity/Depth Moderate Joint Mobilizations 4 Joint cranial bones Grade II 3 Joint zygomatic arch Direction Caudal Grade II Comments FM w/eye movement Manual Traction Cervical Details genle Body Position Supine PT-OP-T Assessment and Plan Start: 02/17/18 08:41 Freq: Status: Active Protocol: Document 03/20/18 10:36 [facility] (Rec: 03/20/18 11:27 [facility] [id number]) Physical Therapy Assessment Goals Three Impairment functional tasks Halfway Goal (LTG) Pt able to bend over without pain in neck & head LTG Duration 04/20/18 Two Impairment AVERY daily Short Term Goal (STG) AVERY 3x/week STG Duration 03/20/18 Ecommerce Analyst Goal (LTG) no AVERY for 2 weeks LTG Duration 04/20/18 One Impairment ROM Ecommerce Analyst Goal (LTG) Full ROM to allow pt to look down and do normal tasks. LTG Duration 04/20/18 Assessment Summary Assessment Improved ability to do exercises with dec cueing. Pt has cranial tightness that may be contributing to symptoms Physical Therapy Plan Frequency and Duration Frequency of Treatment 2x/Week Duration of Treatment 2 months Plan of Care Start Date 02/17/18 Plan of Care End Date 04/20/18 Next Visit Focus/Plan Next Note Type Treatment Note Next Visit Plan requested mechanical traction; cont to work on manual mobility
--- NOTE | 2018-06-14 09:26 | PT.OPDS ---
Current Diagnoses Headache (03/20/18) Provider Visit Care Team Role Provider Type Kwadwo Sharif MD Family Provider Non-Staff Primary Care Provider Specialty: Family Practice Address: [address], [address], [place], [address] Email: Ksenia Marcus DO Attending Provider Non-Staff Specialty: Family Practice Address: [address], [place], [address] Email: Visit Number Visit Number 6 Discharge Summary PT-OP-B Current Condition Start: 02/17/18 08:41 Freq: Status: Active Protocol: Document 02/17/18 10:32 [facility] (Rec: 02/17/18 13:37 [facility] [id number]) Current Condition History of Current Condition Onset Date ~6 weeks ago Current Complaints AVERY & suboccipital pain History of Current Condition Pt reports suboccipital pain & AVERY on L side that goes to behind L eye. Pt reports a feeling of kind of dizzy like trying to center herself all the time. 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 Pain has not subsided with dec stress & dec driving & pt unsure when during a day or what caused her pain to start. Pt is mostly able to sleep but reports recently she has woken up d/t pain a couple of nights. Prior Treatments and Tests Xray performed Future Testing and Treatments Planned head MRI when pt gets back in 1 week Treatment Goals Patient/Caregiver Goals Get pain to go away especially before Mar 27 when she starts work again as she gets debilitated when AVERY get bad. Return to walks. PT-OP-C Subjective Start: 02/17/18 08:41 Freq: Status: Active Protocol: Document 03/20/18 10:36 [facility] (Rec: 03/20/18 11:27 [facility] [id number]) OP-PT Subjective Patient Comments Patient Comments Less sharp left headed pain. Overall pressure AVERY like balloon is blowing up in head. PT-OP-J Posture/Palpation/Skin Start: 02/17/18 08:41 Freq: Status: Active Protocol: Document 02/17/18 10:32 [facility] (Rec: 02/17/18 13:38 [facility] [id number]) Posture Evaluation Comments Posture Comments fwd head & neck Palpation Assessment Location One Palpation Location L cervical region: paraspinals , scalenes, SCM, UT, LS Palpation Findings Soft Tissue Tightness Muscle Guarding Tenderness Palpation Details C1 R rot and L shear & C2 L rot & R shear PT-OP-K Range of Motion Start: 02/17/18 08:41 Freq: Status: Active Protocol: Document 02/17/18 10:32 [facility] (Rec: 02/17/18 11:34 [facility] [id number]) Cervical Spine Range of Motion Cervical Spine Active Degrees Testing Position Sitting Flexion 56 Extension 58 Rotation Left 55 Rotation Right 58 Lateral Flexion Left 28 Lateral Flexion Right 28 Comments pain returning to neutral from flex, pain with ext, stretching contralaterally with SB; stretch R with rotation R PT-OP-L Special Tests Start: 02/17/18 08:41 Freq: Status: Active Protocol: Document 02/17/18 10:32 [facility] (Rec: 02/17/18 11:34 [facility] [id number]) Special Tests Cervical Spine Special Tests Spurling's Test Test Results neg Vertebral Artery Test Results neg B (pain suboccipital only) Alar Ligament Test Results neg Neural Special Tests- Upper Body Upper Limb Tension Test Test Results passive abd Comments 130 L; 150 R PT-OP-M Strength Start: 02/17/18 08:41 Freq: Status: Active Protocol: Document 02/17/18 10:32 [facility] (Rec: 02/17/18 11:34 [facility] [id number]) Shoulder Strength Shoulder Manual Muscle Testing Right Flexion 5 Normal Extension 5 Normal Abduction (C5) 5 Normal Adduction 5 Normal External Rotation 5 Normal Internal Rotation 5 Normal Horizontal Abduction 5 Normal Horizontal Adduction 5 Normal Left Flexion 5 Normal Extension 5 Normal Abduction (C5) 5 Normal Adduction 5 Normal External Rotation 5 Normal Internal Rotation 5 Normal Horizontal Abduction 5 Normal Horizontal Adduction 5 Normal PT-OP-T Assessment and Plan Start: 02/17/18 08:41 Freq: Status: Active Protocol: Document 06/14/18 09:25 [facility] (Rec: 06/14/18 09:26 [facility] [id number]) Physical Therapy Plan Discharge Physical Therapy Discharge Reasons Patient Request Discharge Comments Pt cancelled all further appointments and calls were attempted to get ahold of pt for continuation. Pt attended eval and 5 treatments.
== END 2018-10-24 14:24 ==
LOC: PHYS 10:30
PROVIDERS: Family Provider Family Medicine; PCP Family Medicine; Visit Provider Family Medicine
DX: R51 Headache (principal)
CPT/HCPCS: 97110; 97140; 97162; 97533

== ENCOUNTER → 2020-02-01 12:37 | Outpatient (CLI) | payer OTHER, SELFPAY | PROVIDERS: PCP Family Medicine; Referring Provider Family Medicine; Visit Provider Family Medicine | DX: R51 Headache (principal); R05 Cough; Z53.20 Procedure and treatment not carried out because of patient's decision for unspecified reasons ==

== ENCOUNTER → 2020-02-05 13:58 | Outpatient (CLI) | payer OTHER, SELFPAY ==
--- NOTE | 2020-02-05 13:59 | DI.CT.S_ITS ---
PROCEDURE: CT SINUS SCREEN WO CON INDICATIONS: HEADACHE AND SINUS TECHNIQUE: Noncontrast 3.0 mm axial images acquired from the frontal sinuses to the mid-sella, with coronal and sagittal reformats. For radiation dose reduction, the following was used: automated exposure control, adjustment of mA and/or kV according to patient size. COMPARISON: [facility], MR, MR HEAD/BRAIN WO CON, 03/08/2018, 9:03. FINDINGS: Image quality: Excellent. Sinuses: Very minimal scattered ethmoid mucosal thickening is present. Ostiomeatal Complexes: Ostiomeatal complexes are patent. No Gail cells. Miscellaneous: Visualized intra-orbital contents are normal. Bilateral middle paradoxical turbinates are noted. There is aeration of the vertical pili the middle turbinates bilaterally. Mild rightward nasal septal deviation. IMPRESSION: 1. Minimal scattered ethmoid mucosal thickening. 2. Ostiomeatal complexes are patent. Dictated by: Dayami Nicole M.D. on 02/05/2020 at 17:35 Approved by: Dayami Nicole M.D. on 02/05/2020 at 17:36
== END ==
PROVIDERS: PCP Family Medicine; Referring Provider Family Medicine; Visit Provider Family Medicine
DX: R51 Headache (principal); J34.2 Deviated nasal septum; R05 Cough
CPT/HCPCS: 70486

== ENCOUNTER → 2020-02-25 06:48 | Outpatient (CLI) | payer OTHER, SELFPAY ==
--- NOTE | 2020-02-25 | DI.CT.S_ITS ---
PROCEDURE: CT HEAD/BRAIN WO CON INDICATIONS: Shortness of breath; Empty Sella syndrome TECHNIQUE: Noncontrast 4.5 mm thick angled axial sections acquired from the foramen magnum to the vertex, with coronal and sagittal reformats. For radiation dose reduction, the following was used: automated exposure control, adjustment of mA and/or kV according to patient size. COMPARISON: [facility], CT, CT SINUS SCREEN WO CON, 02/05/2020, 14:01. [facility], MR, MR HEAD/BRAIN WO CON, 03/08/2018, 9:03. FINDINGS: Image quality: Excellent. CSF spaces: Basal cisterns are patent. No extra-axial fluid collections. Ventricles are normal in size and shape. Brain: No midline shift. No intracranial masses or hemorrhage. Amador-white matter interface is normal. Again noted is CSF radiodensity within the sella turcica, previously also documented by MR scanning 03/08/18 without plant changer time. Skull and face: Calvarium and visualized facial bones are intact, without suspicious lesions. Sinuses: Visualized sinuses and mastoids are clear. IMPRESSION: Empty sella morphology without plant changer time again noted at the midline skull base. The brain parenchyma appears excellent for age. No plant changer time considering differences in technique. Dictated by: Teo Licea M.D. on 02/25/2020 at 8:08 Approved by: Teo Licea M.D. on 02/25/2020 at 8:11
--- NOTE | 2020-02-25 07:11 | DI.ECHO.S_ITS ---
Echocardiogram Report + + :Name: SUZANNA MORA Study Date: 02/25/2020 Height: 64 in : :[facility] Weight: 184 lb : : Gender: Female BSA: 1.9 m2 : :: 1960 Age: 59 yrs BP: 112/74 mmHg: :Reason For Study: Shortness of breath, Epty Sella syndrome : :Ordering Physician: JOCELYNN, : :BERTRAND Performed By: Mavis Johnson : :Referring: BERTRAND WALKER : + + Interpretation Summary 1) Normal left ventricular thickness, size, and systolic function (EF 55-60%). 2) Hypokinesis of the apex. 3) Normal right ventricular size and function. 4) No significant valvular abnormalities. 5) Pulmonary artery pressures cannot be estimated because of the lack of a measurable TR jet velocity. 6) Compared to the Echo done 09/08/2017, apical wall motion abnormality is present on this study. Procedure: A two-dimensional transthoracic echocardiogram with color flow and Doppler was performed. The study quality was technically adequate. Comparison is made with the echocardiogram of 09/08/2017. The patient was in sinus rhythm with heart rates between 66-71 bpm during the exam. Left Ventricle: The left ventricle is normal in size and wall thickness. The ejection fraction is estimated to be 55-60%. Hypokinesis of the apex. Diastolic parameters suggest probable normal left ventricular diastolic function and normal filling pressures. Right Ventricle: The right ventricle is normal in size and function. Atria: Both atria are normal in size. There is no Doppler evidence for an interatrial shunt. Mitral Valve: The mitral valve is normal in structure and function. There is trace mitral regurgitation. Aortic Valve: The aortic valve is trileaflet. The aortic valve opens well. There is no aortic valve stenosis. No aortic regurgitation is present. Tricuspid Valve: The tricuspid valve is normal in structure but is abnormal in function. There is a trace or physiologic amount of tricuspid regurgitation. Pulmonary artery pressures cannot be estimated because of the lack of a measurable TR jet velocity. Pulmonic Valve: The pulmonic valve leaflets are thin and pliable; valve motion is normal. There is a trace or physiologic amount of pulmonic regurgitation. Great Vessels: The aortic root is normal size. The dimensions of the ascending aorta are normal. The IVC is of normal diameter and collapses greater than 50% with a sniff. This suggests a low right atrial pressure of 3 mm Hg. Pericardium/ Pleura There is no pericardial effusion. There is no pleural effusion. MMode/2D Measurements & Calculations LVIDd: 4.2 cm LVOT diam: 2.0 cm LVIDs: 2.7 cm Ao root diam: 2.6 cm FS: 34.3 % asc Aorta Diam: 2.8 cm EPSS: 0.42 cm Ao Arch Diam (Prox Trans): 3.1 cm IVSd: 0.74 cm LVPWd: 0.78 cm LV branham. diameter/BSA (cm/m^2): 2.2 LV sys. diameter/BSA (cm/m^2): 1.5 LA A2 area: 18.2 cm2 RA long axis: 4.4 cm LA A4 area: 17.9 cm2 RA area: 13.3 cm2 LA length (vol): 4.8 cm RA vol: 34.1 ml LA vol: 58.2 ml RA : 18.1 ml/m2 LA vol index: 30.8 ml/m2 IVC diam: 1.1 cm RVD1 (basal): 3.9 cm TAPSE: 1.9 cm Doppler Measurements & Calculations Ao V2 max: 135.4 cm/sec LVOT Max Dar: 100.1 cm/sec Ao V2 mean: 89.0 cm/sec LV V1 max P.0 mmHg Ao max P.3 mmHg LV V1 VTI: 19.6 cm Ao mean P.6 mmHg DEANA(I,D): 2.1 cm2 Ao V2 VTI: 29.2 cm DEANA(V,D): 2.3 cm2 sev ratio: 0.67 DEANA indexed to BSA (cm^2/m^2): 1.1 MV E max dar: 8.8 cm/sec PA V2 max: 76.6 cm/sec Med Peak E' Dar: 8.6 cm/sec PA V2 mean: 48.2 cm/sec E/E' med: 1.0 PA mean P.1 mmHg Lat Peak E' Dar: 11.9 cm/sec PA pr(Accel): 20.8 mmHg E/E' lat: 0.74 E/e' average: 0.88 SV(LVOT): 60.6 ml Reading Physician:11:26 AM
== END ==
PROVIDERS: PCP Family Medicine; Referring Provider Family Medicine; Visit Provider Family Medicine
DX: R06.02 Shortness of breath (principal); E23.6 Other disorders of pituitary gland
CPT/HCPCS: 70450; 93306

== ENCOUNTER → 2020-04-27 10:16 | Outpatient (CLI) | payer OTHER, SELFPAY ==
[2020-04-28 14:13] LABS: COVID19 Sendout Not Detected (Not Detect)
== END ==
PROVIDERS: PCP Family Medicine; Visit Provider Physician Assistant
DX: Z11.59 Encounter for screening for other viral diseases (principal)
CPT/HCPCS: 87635

== ENCOUNTER → 2020-04-30 15:15 | Outpatient (CLI) | payer OTHER, SELFPAY ==
--- NOTE | 2020-04-30 18:00 | DI.NM.S_ITS ---
DATE OF SERVICE: 04/30/2020 PROCEDURE: Exercise stress test. INDICATION: Shortness of breath. CARDIAC STRESS: The patient underwent exercise stress test under the supervision of an attending staff. He walked on Isra protocol for 7 minutes and 59 seconds, achieved 10.1 METs of workload, target heart rate 111 percent. There was normal hemodynamic response. No chest pain. Baseline EKG revealed sinus rhythm. During stress, there was some nonspecific upsloping ST depression in inferior lateral leads. The patient has some PVCs during exercise and occasional ventricular couplets without any ventricular tachycardia. Some PACs seen, as well. No obvious atrial fibrillation or sustained supraventricular tachycardia. CONCLUSION: Exercise test is negative for inducible ischemia. Normal hemodynamic response. The patient achieved 10.1 METs of workload. Walked on Isra protocol for 7 minutes and 59 seconds. Isolated premature ventricular contractions and some ventricular couplets during exercise without any ventricular tachycardia. Premature atrial contractions were seen without any atrial fibrillation or sustained supraventricular tachycardia. Ninfa Carranza - Angélica/darrell doc#: [id number]/job#: [id number] dd: 04/30/2020 16:55:00 dt: 04/30/2020 17:26:00 DICTATING /COPIES TO: Crissy Sanchez MD COPIES MNE: RIC;
== END ==
PROVIDERS: PCP Family Medicine; Referring Provider Family Medicine; Visit Provider Family Medicine
DX: R06.02 Shortness of breath (principal)
CPT/HCPCS: 93017

== ENCOUNTER → 2020-06-21 08:34 | Outpatient (CLI) | payer OTHER, SELFPAY ==
[2020-06-21 09:45] LABS: COVID19 -Nasal RAPID Negative (Negative)
== END ==
PROVIDERS: PCP Family Medicine; Visit Provider Physician Assistant
DX: Z11.59 Encounter for screening for other viral diseases (principal)
CPT/HCPCS: 87635

== ENCOUNTER → 2021-02-18 12:18 | Outpatient (CLI) | payer OTHER, SELFPAY ==
--- NOTE | 2021-02-18 12:20 | DI.RAD.S_ITS ---
PROCEDURE: XR LUMBAR SPINE 2-3V INDICATIONS: LOW BACK PAIN TECHNIQUE: 3 views of the lumbar spine were acquired. COMPARISON: None. FINDINGS: Bones: 5 dzy-gph-lbxcaud vertebrae are present. There is normal bony alignment. No vertebral body compression fractures. No suspicious bony lesions. Mild L2-L3, L3-L4, L4-L5 and L5-S1 degenerative disc disease. Soft tissues: Overlying bowel gas pattern is normal. No suspicious soft tissue calcifications. IMPRESSION: 1. Mild multilevel degenerative disc disease. 2. No fracture. No acute osseous lesion. If symptoms and/or clinical suspicion for pathology persists, evaluation with MRI should be considered for further assessment. Dictated by: Linda Maria MD, PhD on 02/18/2021 at 14:50 Approved by: Linda Maria MD, PhD on 02/18/2021 at 14:50
--- NOTE | 2021-02-18 12:20 | DI.RAD.S_ITS ---
PROCEDURE: XR HIP W PEL IF DONE BILAT 2V INDICATIONS: LOW BACK PAIN TECHNIQUE: AP pelvis with lateral view(s) of the right and left hip(s). COMPARISON: None. FINDINGS: Bones: Both hips demonstrate degenerative changes, severe on the right and moderate on the left. There is irregularity of the weight-bearing surfaces of the acetabulum with subchondral sclerosis and cystic changes. There is irregularity of the femoral heads bilaterally with osteophytes of the right femoral head. Soft tissues: The visualized bowel gas pattern is normal. No suspicious soft tissue calcifications. IMPRESSION: Degenerative changes of both hips consistent with osteoarthritis, severe on the right. Dictated by: Vamsi Manley M.D. on 02/18/2021 at 17:50 Approved by: Vamsi Manley M.D. on 02/18/2021 at 17:52
== END ==
PROVIDERS: PCP Family Medicine; Referring Provider Family Medicine; Visit Provider Family Medicine
DX: M54.5 Low back pain (principal); M51.36 Other intervertebral disc degeneration, lumbar region; M51.37 Other intervertebral disc degeneration, lumbosacral region
CPT/HCPCS: 72100; 73521

== ENCOUNTER 2021-04-27 16:45 | Outpatient (RCR) | payer OTHER, SELFPAY ==
--- NOTE | 2021-03-11 19:13 | PT.OIE ---
Current Diagnoses Pain in right hip (03/11/21) Pain in left hip (03/11/21) Low back pain (03/11/21) Difficulty in walking, not elsewhere classified (03/11/21) Abnormal posture (03/11/21) Weakness (03/11/21) Visit Care Team Role Provider Type Sarah Bae MD Attending Provider Physician Primary Care Provider Referring Provider Specialty: [facility] Address: [address] [place] [address], [facility] [place], [facility] Email: [email or web address] Physical Therapy Initial Evaluation PT-OP-A Visit Information Start: 03/11/21 07:27 Freq: Status: Active Protocol: Document 03/11/21 14:33 [facility] (Rec: 03/11/21 15:27 [facility] [id number]) Out-Patient Physical Therapy Visit Information Visit Information Visit Type Initial Evaluation Visit Start Time 14:35 Visit Stop Time 15:22 Total Visit Minutes 47 Visit Number 1 Number of PRINCIPAL BIOSTATISTICIAN Visits 0 PT-OP-B Current Condition Start: 03/11/21 07:27 Freq: Status: Active Protocol: Document 03/11/21 14:33 [facility] (Rec: 03/11/21 15:27 [facility] [id number]) Current Condition History of Current Condition Onset Date 6 months to 1 year Current Complaints B hips, LB History of Current Condition Pt reports severe arthritis on R hip and mod on 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 Pt will follow up with MD next week with X-rays and she talked w/MD about ortho who she likes. Pt reports gradual increase in pain and LB more recent over last 6 months and hips about 1 year ago. Pt reports history of neck pain and AVERY. 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 Pt walks 2x/week and walks about [place] [place] [address] and sometimes she has pain in R hip and LB like it went out of place or tightness. L knee pain that limits her also (ACL repair x2 , patella reconstruction, LCL repair, total of 10 major surgeries). History of hysterectomy also. Treatment Goals Patient/Caregiver Goals improve ability to sit and stand, ability to put socks/ shoes on, ability to walk, ability to get in/out car PT-OP-C Subjective Start: 03/11/21 07:27 Freq: Status: Active Protocol: Document 03/11/21 14:33 [facility] (Rec: 03/11/21 15:27 [facility] [id number]) Patient Questionnaires Lower Extremity Functional Scale LEFS Score 46/80 OP-PT Pain Assessment Location LB/B hips Pain Location Details pain in lower lumbar/sacral/ SIJ region & lat hips Intensity 4 Scale Used worst 7/10 Description Aching Frequency Constant Radiating Location occ R lat thigh Variations/Patterns tingling in B bottoms of feet, swelling in ankles Pain Aggravating Factors Standing,Sitting Other Pain Aggravating Factors in/out car, shoes/socks on/off Pain Alleviating Factors Heat,Medication Other Pain Alleviating Factors taking advil/tylenol a lot, massager PT-OP-D Balance Start: 03/11/21 07:27 Freq: Status: Active Protocol: Document 03/11/21 14:33 [facility] (Rec: 03/11/21 15:27 [facility] [id number]) Balance Tests Single Limb Standing Single Limb- Right >30 sec w/lat tip R & shear of R hip Single Limb- Left 23 sec w/lat tip L & shear of L hip PT-OP-F Manual Assessment Start: 03/11/21 07:27 Freq: Status: Active Protocol: Document 03/11/21 14:33 [facility] (Rec: 03/11/21 15:27 [facility] [id number]) Manual Assessments Soft Tissue Assessment Soft Tissue Mobility Assessment tightnes in B ES & QL, tenderness B greater trochanter, upper glutes, ITB PT-OP-G Mobility & Gait Start: 03/11/21 07:27 Freq: Status: Active Protocol: Document 03/11/21 14:33 [facility] (Rec: 03/11/21 15:27 [facility] [id number]) OP Gait Assessment Comments Gait Comments Dec push off and dec stacne time LLE PT-OP-J Posture/Palpation/Skin Start: 03/11/21 07:27 Freq: Status: Active Protocol: Document 03/11/21 14:33 [facility] (Rec: 03/11/21 15:27 [facility] [id number]) Posture Evaluation Vladislav Postural Classification System Vladislav Postural Classifications Posterior/Posterior Vertebral Compression Test 1 Elbow Flexion Test 2 Lumbar Protective Mechanism Left AP 0 Lumbar Protective Mechanism Right AP 1 Lumbar Protective Mechanism Left PA 0 Lumbar Protective Mechanism Right PA 0 Comments Posture Comments mildly ER femur and tibia R, IR femur L, ER tibia L, R iliac crest higher, equal greater trochanters, SB R & pelvic shear L, knee hyperext standing PT-OP-K Range of Motion Start: 03/11/21 07:27 Freq: Status: Active Protocol: Document 03/11/21 14:33 [facility] (Rec: 03/11/21 15:27 [facility] [id number]) Lumbar Spine Range of Motion Lumbar Spine Active Degrees Flexion 42 Extension 31 Lateral Flexion Left 25 Lateral Flexion Right 20 Hip Goniometric Range of Motion Hip Right Active Flexion w/Knee Flexed 95 Straight Leg Raise 90 Internal Rotation 26 External Rotation 17 Left Active Flexion w/Knee Flexed 98 Straight Leg Raise 90 Internal Rotation 20 External Rotation 14 PT-OP-L Special Tests Start: 03/11/21 07:27 Freq: Status: Active Protocol: Document 03/11/21 14:33 [facility] (Rec: 03/11/21 15:27 [facility] [id number]) Special Tests Lumbar Spine Special Tests Straight Leg Raise Test Results neg Devan Test Results mild tightness Slump Test Results neg B PT-OP-M Strength Start: 03/11/21 07:27 Freq: Status: Active Protocol: Document 03/11/21 14:33 [facility] (Rec: 03/11/21 15:27 [facility] [id number]) Hip Strength Hip Manual Muscle Testing Right Flexion (L2) 4- Good- Extension (S1) 4- Good- Abduction 3+ Fair+ Adduction 4- Good- External Rotation 4- Good- Internal Rotation 4 Good Left Flexion (L2) 3+ Fair+ Extension (S1) 4- Good- Abduction 3 Fair Adduction 4- Good- External Rotation 4- Good- Internal Rotation 4 Good Comments pain hip IR Knee Strength Knee Manual Muscle Testing Right Flexion (S2) 4+ Good+ Extension (L3) 4 Good Left Flexion (S2) 4 Good Extension (L3) 4- Good- Ankle/Foot Strength Ankle and Foot Manual Muscle Testing Right Dorsiflexion (L4) 5 Normal Plantarflexion (S1) 5 Normal Left Dorsiflexion (L4) 5 Normal Plantarflexion (S1) 5 Normal Comments 20 heel raises B PT-OP-T Assessment and Plan Start: 03/11/21 07:27 Freq: Status: Active Protocol: Document 03/11/21 14:33 [facility] (Rec: 03/11/21 15:27 [facility] [id number]) Physical Therapy Assessment Rehab Potential Rehabilitation Potential Good Evaluation Complexity Number of Personal Factors/Comorbidities 3 or More Number of Body Systems Impaired 4 or More Clinical Presentation at Evaluation Evolving Impairments Impairments Activity Tolerance,Balance, Functional Activities, Functional Mobility,Gait,Pain, Posture,ROM,Soft Tissue Mobility,Strength,Transfers Goals walking Short Term Goal (STG) Pt will be able to tolerate short bouts of standing as needed w/o inc hp or back pain for daily activities. STG Duration 04/11/21 Long-Term Goal (LTG) Pt will be able to ambulate for at least 2 miles without inc pain in LB or hips. LTG Duration 05/11/21 ROM Short Term Goal (STG) pt will have improved flex and ER of B hips by 10 deg ea STG Duration 04/11/21 Leg Breaker Goal (LTG) Pt will be able to don shoes and socks w/o inc pain or difficulty B LTG Duration 05/11/21 strenth Short Term Goal (STG) Pt will be indep w/ HEP. STG Duration 04/11/21 Leg Breaker Goal (LTG) Pt will score at least 3/5 on LPM and 5/5 on all LE MMT to show improved strengh to inc ease w/daily activities. LTG Duration 05/11/21 activities Short Term Goal (STG) pt will be able to get in/out of the car w/o inc pain. STG Duration 04/11/21 Leg Breaker Goal (LTG) Pt will be able to sit as needed for work with appropriate breaks from sitting (every hour stand and move for about 30 sec) without inc pain. LTG Duration 05/11/21 Assessment Summary Assessment Pt presents w/chronic B hip pain w/gradual worsening over the past year and development of LBP over past 6 months, which has limited her mobility and ability to spend any length of time in standing or sitting or walking extended. She has limited hip ROM B, and dec core and Hip strength whcih likely contributes to her pain and difficulty w/ADLs and tasks. She has significantly impaired posture and impaired gait mechanics which L knee pain and mult injuries complicates. She would benefit from skilled PT to work on B hip pain and back pain by addressing noted deficits. Physical Therapy Plan Frequency and Duration Frequency of Treatment 1-2x/week Duration of Treatment 2 months Plan of Care Start Date 03/11/21 Plan of Care End Date 05/11/21 Therapeutic Interventions Therapeutic Interventions Aquatic Therapy,Balance Training,Gait Training,Home Exercise Program,Joint Mobilizations,Manual Therapy, Neuromuscular Re-education, Patient/Caregiver Education, Self-Care/Home Management,Soft Tissue Mobilization,Taping, Therapeutic Activities, Therapeutic Exercises Modalities Cold Pack/Ice Massage,Electric Stimulation,Hot Packs, Traction- Mechanical, Ultrasound Next Visit Focus/Plan Next Note Type Treatment Note Next Visit Plan supine core exercises( pelvic tilt, SL isometric, bridge), glute stretches(figure 4, opp knee to chest), s/l abd,tennis ball to glutes, manual hip joint mobs & soft tissue work
--- NOTE | 2021-03-11 19:13 | PT.OPPOC ---
Physical, Occupational & Speech Therapy At [facility] Current Diagnoses Pain in right hip (03/11/21) Pain in left hip (03/11/21) Low back pain (03/11/21) Difficulty in walking, not elsewhere classified (03/11/21) Abnormal posture (03/11/21) Weakness (03/11/21) Visit Care Team Role Provider Type Sarah Bae MD Attending Provider Physician Primary Care Provider Referring Provider Specialty: [facility] Address: [address] [place] [address], [facility] Email: Plan Of Care PT-OP-T Assessment and Plan Start: 03/11/21 07:27 Freq: Status: Active Protocol: Document 03/11/21 14:33 [facility] (Rec: 03/11/21 15:27 [facility] [id number]) Physical Therapy Assessment Rehab Potential Rehabilitation Potential Good Evaluation Complexity Number of Personal Factors/Comorbidities 3 or More Number of Body Systems Impaired 4 or More Clinical Presentation at Evaluation Evolving Impairments Impairments Activity Tolerance,Balance, Functional Activities, Functional Mobility,Gait,Pain, Posture,ROM,Soft Tissue Mobility,Strength,Transfers Goals walking Short Term Goal (STG) Pt will be able to tolerate short bouts of standing as needed w/o inc hp or back pain for daily activities. STG Duration 04/11/21 Lease Picker Goal (LTG) Pt will be able to ambulate for at least 2 miles without inc pain in LB or hips. LTG Duration 05/11/21 ROM Short Term Goal (STG) pt will have improved flex and ER of B hips by 10 deg ea STG Duration 04/11/21 Custodial Goal (LTG) Pt will be able to don shoes and socks w/o inc pain or difficulty B LTG Duration 05/11/21 strenth Short Term Goal (STG) Pt will be indep w/ HEP. STG Duration 04/11/21 Custodial Goal (LTG) Pt will score at least 3/5 on LPM and 5/5 on all LE MMT to show improved strengh to inc ease w/daily activities. LTG Duration 05/11/21 activities Short Term Goal (STG) pt will be able to get in/out of the car w/o inc pain. STG Duration 04/11/21 Lease Picker Goal (LTG) Pt will be able to sit as needed for work with appropriate breaks from sitting (every hour stand and move for about 30 sec) without inc pain. LTG Duration 05/11/21 Assessment Summary Assessment Pt presents w/chronic B hip pain w/gradual worsening over the past year and development of LBP over past 6 months, which has limited her mobility and ability to spend any length of time in standing or sitting or walking extended. She has limited hip ROM B, and dec core and Hip strength whcih likely contributes to her pain and difficulty w/ADLs and tasks. She has significantly impaired posture and impaired gait mechanics which L knee pain and mult injuries complicates. She would benefit from skilled PT to work on B hip pain and back pain by addressing noted deficits. Physical Therapy Plan Frequency and Duration Frequency of Treatment 1-2x/week Duration of Treatment 2 months Plan of Care Start Date 03/11/21 Plan of Care End Date 05/11/21 Therapeutic Interventions Therapeutic Interventions Aquatic Therapy,Balance Training,Gait Training,Home Exercise Program,Joint Mobilizations,Manual Therapy, Neuromuscular Re-education, Patient/Caregiver Education, Self-Care/Home Management,Soft Tissue Mobilization,Taping, Therapeutic Activities, Therapeutic Exercises Modalities Cold Pack/Ice Massage,Electric Stimulation,Hot Packs, Traction- Mechanical, Ultrasound Next Visit Focus/Plan Next Note Type Treatment Note Next Visit Plan supine core exercises( pelvic tilt, SL isometric, bridge), glute stretches(figure 4, opp knee to chest), s/l abd,tennis ball to glutes, manual hip joint mobs & soft tissue work Plan of Care Dates Plan of Care Start Date 03/11/21 Plan of Care End Date 05/11/21 Electronically Signed by: Chastity Hernadez, PT 03/11/21 [id number] Please Sign and Return: I have reviewed this Plan of Care and certify that the skilled therapy services above are required to meet the patient?s needs. Physician Signature Date Printed Name and Credentials Clinical Instructor Signature Printed Name and Credentials
--- NOTE | 2021-03-18 16:40 | PT.OTN ---
Current Diagnoses Pain in right hip (03/18/21) Pain in left hip (03/18/21) Low back pain (03/18/21) Difficulty in walking, not elsewhere classified (03/18/21) Abnormal posture (03/18/21) Weakness (03/18/21) Physical Therapy Treatment Note PT-OP-A Visit Information Start: 03/11/21 07:27 Freq: Status: Active Protocol: Document 03/18/21 14:34 [facility] (Rec: 03/18/21 16:40 [facility] [id number]) Out-Patient Physical Therapy Visit Information Visit Information Visit Type Treatment Note Visit Start Time 14:35 Visit Stop Time 15:15 Total Visit Minutes 40 Visit Number 2 Number of [employer] TECHNICAL MANAGER Visits 0 PT-OP-B Current Condition Start: 03/11/21 07:27 Freq: Status: Active Protocol: Document 03/11/21 14:33 [facility] (Rec: 03/11/21 15:27 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 Pt will follow up with MD next week with X-rays and she talked w/MD about ortho who she likes. Pt reports gradual increase in pain and LB more recent over last 6 months and hips about 1 year ago. Pt reports history of neck pain and AVERY. 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 Pt walks 2x/week and [place] and sometimes she has pain in R hip and LB like it went out of place or tightness. L knee pain that limits her also (ACL repair x2 , patella reconstruction, LCL repair, total of 10 major surgeries). History of hysterectomy also. Treatment Goals Patient/Caregiver Goals improve ability to sit and stand, ability to put socks/ shoes on, ability to walk, ability to get in/out car PT-OP-C Subjective Start: 03/11/21 07:27 Freq: Status: Active Protocol: Document 03/18/21 14:34 [facility] (Rec: 03/18/21 16:40 [facility] [id number]) OP-PT Subjective Patient Comments Patient Comments Pt reports being very busy w/ work PT-OP-D Balance Start: 03/11/21 07:27 Freq: Status: Active Protocol: Document 03/11/21 14:33 [facility] (Rec: 03/11/21 15:27 [facility] [id number]) Balance Tests Single Limb Standing Single Limb- Right >30 sec w/lat tip R & shear of R hip Single Limb- Left 23 sec w/lat tip L & shear of L hip PT-OP-F Manual Assessment Start: 03/11/21 07:27 Freq: Status: Active Protocol: Document 03/11/21 14:33 [facility] (Rec: 03/11/21 15:27 [facility] [id number]) Manual Assessments Soft Tissue Assessment Soft Tissue Mobility Assessment tightnes in B ES & QL, tenderness B greater trochanter, upper glutes, ITB PT-OP-G Mobility & Gait Start: 03/11/21 07:27 Freq: Status: Active Protocol: Document 03/11/21 14:33 [facility] (Rec: 03/11/21 15:27 [facility] [id number]) OP Gait Assessment Comments Gait Comments Dec push off and dec stacne time LLE PT-OP-J Posture/Palpation/Skin Start: 03/11/21 07:27 Freq: Status: Active Protocol: Document 03/11/21 14:33 [facility] (Rec: 03/11/21 15:27 [facility] [id number]) Posture Evaluation Vladislav Postural Classification System Vladislav Postural Classifications Posterior/Posterior Vertebral Compression Test 1 Elbow Flexion Test 2 Lumbar Protective Mechanism Left AP 0 Lumbar Protective Mechanism Right AP 1 Lumbar Protective Mechanism Left PA 0 Lumbar Protective Mechanism Right PA 0 Comments Posture Comments mildly ER femur and tibia R, IR femur L, ER tibia L, R iliac crest higher, equal greater trochanters, SB R & pelvic shear L, knee hyperext standing PT-OP-K Range of Motion Start: 03/11/21 07:27 Freq: Status: Active Protocol: Document 03/11/21 14:33 [facility] (Rec: 03/11/21 15:27 [facility] [id number]) Lumbar Spine Range of Motion Lumbar Spine Active Degrees Flexion 42 Extension 31 Lateral Flexion Left 25 Lateral Flexion Right 20 Hip Goniometric Range of Motion Hip Right Active Flexion w/Knee Flexed 95 Straight Leg Raise 90 Internal Rotation 26 External Rotation 17 Left Active Flexion w/Knee Flexed 98 Straight Leg Raise 90 Internal Rotation 20 External Rotation 14 PT-OP-L Special Tests Start: 03/11/21 07:27 Freq: Status: Active Protocol: Document 03/11/21 14:33 [facility] (Rec: 03/11/21 15:27 [facility] [id number]) Special Tests Lumbar Spine Special Tests Straight Leg Raise Test Results neg Devan Test Results mild tightness Slump Test Results neg B PT-OP-M Strength Start: 03/11/21 07:27 Freq: Status: Active Protocol: Document 03/11/21 14:33 [facility] (Rec: 03/11/21 15:27 [facility] [id number]) Hip Strength Hip Manual Muscle Testing Right Flexion (L2) 4- Good- Extension (S1) 4- Good- Abduction 3+ Fair+ Adduction 4- Good- External Rotation 4- Good- Internal Rotation 4 Good Left Flexion (L2) 3+ Fair+ Extension (S1) 4- Good- Abduction 3 Fair Adduction 4- Good- External Rotation 4- Good- Internal Rotation 4 Good Comments pain hip IR Knee Strength Knee Manual Muscle Testing Right Flexion (S2) 4+ Good+ Extension (L3) 4 Good Left Flexion (S2) 4 Good Extension (L3) 4- Good- Ankle/Foot Strength Ankle and Foot Manual Muscle Testing Right Dorsiflexion (L4) 5 Normal Plantarflexion (S1) 5 Normal Left Dorsiflexion (L4) 5 Normal Plantarflexion (S1) 5 Normal Comments 20 heel raises B PT-OP-Q Treatments Start: 03/11/21 07:27 Freq: Status: Active Protocol: Document 03/18/21 14:34 [facility] (Rec: 03/18/21 16:40 [facility] [id number]) Therapeutic Exercises Supine Exercises core Supine Exercise Name DL isometric flex for core Side bilateral Reps/Minutes 30 sec bridge Side bilateral Reps/Minutes 5 sec hold x10 pelvic tilt Reps/Minutes 10 stretches Supine Exercise Name 1. piriformis 2. figure 4 Side bilateral Reps/Minutes 30 sec Sidelying Exercises hip abd Side bilateral Reps/Minutes 15 Other Exercises roll out Other Exercise Name tennis ball in glutes Side right Manual Therapy Treatment Soft Tissue Mobilization 4 Body Location piriformis Mobilization Type Rolling,Strumming,Sustained Pressure Intensity/Depth Moderate Body Position Prone Comments w/hip ER/IR Joint Mobilizations 4 Joint R hip Direction inf FM & ER hip on axis FM 3 Joint sacrum Direction caudal FM & LIZBETH 2 Joint R innominate Direction ER FM PT-OP-T Assessment and Plan Start: 03/11/21 07:27 Freq: Status: Active Protocol: Document 03/18/21 14:34 [facility] (Rec: 03/18/21 16:40 [facility] [id number]) Physical Therapy Assessment Goals walking Short Term Goal (STG) Pt will be able to tolerate short bouts of standing as needed w/o inc hp or back pain for daily activities. STG Duration 04/11/21 Usp Goal (LTG) Pt will be able to ambulate for at least 2 miles without inc pain in LB or hips. LTG Duration 05/11/21 ROM Short Term Goal (STG) pt will have improved flex and ER of B hips by 10 deg ea STG Duration 04/11/21 Usp Goal (LTG) Pt will be able to don shoes and socks w/o inc pain or difficulty B LTG Duration 05/11/21 strenth Short Term Goal (STG) Pt will be indep w/ HEP. STG Duration 04/11/21 Parcel Post Carrier Goal (LTG) Pt will score at least 3/5 on LPM and 5/5 on all LE MMT to show improved strengh to inc ease w/daily activities. LTG Duration 05/11/21 activities Short Term Goal (STG) pt will be able to get in/out of the car w/o inc pain. STG Duration 04/11/21 Parcel Post Carrier Goal (LTG) Pt will be able to sit as needed for work with appropriate breaks from sitting (every hour stand and move for about 30 sec) without inc pain. LTG Duration 05/11/21 Assessment Summary Assessment Pt had improved hip flexion after manual treatment to R side along w/improved hip ER. She has significant joint tightness on R> L side. She noted no pain w/exercises except a little w/ hip abd on L Physical Therapy Plan Next Visit Focus/Plan Next Note Type Treatment Note Next Visit Plan Review:supine core exercises( pelvic tilt, SL isometric, bridge), glute stretches( figure 4, opp knee to chest), s/l abd,tennis ball to glutes, manual hip joint mobs & soft tissue work
--- NOTE | 2021-03-24 18:10 | PT.OTN ---
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 Pt will follow up with MD next week with X-rays and she talked w/MD about ortho who she likes. Pt reports gradual increase in pain and LB more recent over last 6 months and hips about 1 year ago. Pt reports history of neck pain and AVERY. 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 Pt walks 2x/week and walks about [place].[address] [place] [address] [employer] [address] and sometimes she has pain in R hip and LB like it went out of place or tightness. L knee pain that limits her also (ACL repair x2 , patella reconstruction, LCL repair, total of 10 major surgeries). History of hysterectomy also. Treatment Goals Patient/Caregiver Goals improve ability to sit and stand, ability to put socks/ shoes on, ability to walk, ability to get in/out car PT-OP-C Subjective Start: 03/11/21 07:27 Freq: Status: Active Protocol: Document 03/24/21 16:48 [facility] (Rec: 03/24/21 18:10 [facility] [id number]) OP-PT Subjective Patient Comments Patient Comments Pt reports pain a little bit better. Compliance w/exercises . Patient Reported Progress Improving PT-OP-D Balance Start: 03/11/21 07:27 Freq: Status: Active Protocol: Document 03/11/21 14:33 [facility] (Rec: 03/11/21 15:27 [facility] [id number]) Balance Tests Single Limb Standing Single Limb- Right >30 sec w/lat tip R & shear of R hip Single Limb- Left 23 sec w/lat tip L & shear of L hip PT-OP-F Manual Assessment Start: 03/11/21 07:27 Freq: Status: Active Protocol: Document 03/11/21 14:33 [facility] (Rec: 03/11/21 15:27 [facility] [id number]) Manual Assessments Soft Tissue Assessment Soft Tissue Mobility Assessment tightnes in B ES & QL, tenderness B greater trochanter, upper glutes, ITB PT-OP-G Mobility & Gait Start: 03/11/21 07:27 Freq: Status: Active Protocol: Document 03/11/21 14:33 [facility] (Rec: 03/11/21 15:27 [facility] [id number]) OP Gait Assessment Comments Gait Comments Dec push off and dec stacne time LLE PT-OP-J Posture/Palpation/Skin Start: 03/11/21 07:27 Freq: Status: Active Protocol: Document 03/11/21 14:33 [facility] (Rec: 03/11/21 15:27 [facility] [id number]) Posture Evaluation [facility] Postural Classification System Vladislav Postural Classifications Posterior/Posterior Vertebral Compression Test 1 Elbow Flexion Test 2 Lumbar Protective Mechanism Left AP 0 Lumbar Protective Mechanism Right AP 1 Lumbar Protective Mechanism Left PA 0 Lumbar Protective Mechanism Right PA 0 Comments Posture Comments mildly ER femur and tibia R, IR femur L, ER tibia L, R iliac crest higher, equal greater trochanters, SB R & pelvic shear L, knee hyperext standing PT-OP-K Range of Motion Start: 03/11/21 07:27 Freq: Status: Active Protocol: Document 03/11/21 14:33 [facility] (Rec: 03/11/21 15:27 [facility] [id number]) Lumbar Spine Range of Motion Lumbar Spine Active Degrees Flexion 42 Extension 31 Lateral Flexion Left 25 Lateral Flexion Right 20 Hip Goniometric Range of Motion Hip Right Active Flexion w/Knee Flexed 95 Straight Leg Raise 90 Internal Rotation 26 External Rotation 17 Left Active Flexion w/Knee Flexed 98 Straight Leg Raise 90 Internal Rotation 20 External Rotation 14 PT-OP-L Special Tests Start: 03/11/21 07:27 Freq: Status: Active Protocol: Document 03/11/21 14:33 [facility] (Rec: 03/11/21 15:27 [facility] [id number]) Special Tests Lumbar Spine Special Tests Straight Leg Raise Test Results neg Devan Test Results mild tightness Slump Test Results neg B PT-OP-M Strength Start: 03/11/21 07:27 Freq: Status: Active Protocol: Document 03/11/21 14:33 [facility] (Rec: 03/11/21 15:27 [facility] [id number]) Hip Strength Hip Manual Muscle Testing Right Flexion (L2) 4- Good- Extension (S1) 4- Good- Abduction 3+ Fair+ Adduction 4- Good- External Rotation 4- Good- Internal Rotation 4 Good Left Flexion (L2) 3+ Fair+ Extension (S1) 4- Good- Abduction 3 Fair Adduction 4- Good- External Rotation 4- Good- Internal Rotation 4 Good Comments pain hip IR Knee Strength Knee Manual Muscle Testing Right Flexion (S2) 4+ Good+ Extension (L3) 4 Good Left Flexion (S2) 4 Good Extension (L3) 4- Good- Ankle/Foot Strength Ankle and Foot Manual Muscle Testing Right Dorsiflexion (L4) 5 Normal Plantarflexion (S1) 5 Normal Left Dorsiflexion (L4) 5 Normal Plantarflexion (S1) 5 Normal Comments 20 heel raises B PT-OP-Q Treatments Start: 03/11/21 07:27 Freq: Status: Active Protocol: Document 03/24/21 16:48 [facility] (Rec: 03/24/21 18:10 [facility] [id number]) Therapeutic Exercises Supine Exercises core Supine Exercise Name DL isometric flex for core Side bilateral Reps/Minutes 30 sec bridge Supine Exercise Name w/alt october Side bilateral Reps/Minutes 10 pelvic tilt Supine Exercise Name Tabd w/alt october Side bilateral Reps/Minutes 20 stretches Supine Exercise Name 1. piriformis 2. figure 4 Side bilateral Reps/Minutes 30 sec Sidelying Exercises hip abd Side bilateral Reps/Minutes 15 Manual Therapy Treatment Soft Tissue Mobilization 4 Body Location piriformis & lower glutes R Mobilization Type Rolling,Strumming,Sustained Pressure Intensity/Depth Moderate Body Position Prone Comments w/hip ER/IR 3 Body Location iliacus Mobilization Type Sustained Pressure Intensity/Depth Moderate 2 Body Location adductors Mobilization Type Rolling,Sustained Pressure Intensity/Depth Moderate Body Position Supine Comments w/hip IR/ER Joint Mobilizations 4 Joint R hip Direction inf FM & ER hip on axis FM 3 Joint sacrum Direction LIZBETH PT-OP-T Assessment and Plan Start: 03/11/21 07:27 Freq: Status: Active Protocol: Document 03/24/21 16:48 [facility] (Rec: 03/24/21 18:10 [facility] [id number]) Physical Therapy Assessment Goals walking Short Term Goal (STG) Pt will be able to tolerate short bouts of standing as needed w/o inc hp or back pain for daily activities. STG Duration 04/11/21 Custodial Goal (LTG) Pt will be able to ambulate for at least 2 miles without inc pain in LB or hips. LTG Duration 05/11/21 ROM Short Term Goal (STG) pt will have improved flex and ER of B hips by 10 deg ea STG Duration 04/11/21 Learning Officer Goal (LTG) Pt will be able to don shoes and socks w/o inc pain or difficulty B LTG Duration 05/11/21 strenth Short Term Goal (STG) Pt will be indep w/ HEP. STG Duration 04/11/21 Custodial Goal (LTG) Pt will score at least 3/5 on LPM and 5/5 on all LE MMT to show improved strengh to inc ease w/daily activities. LTG Duration 05/11/21 activities Short Term Goal (STG) pt will be able to get in/out of the car w/o inc pain. STG Duration 04/11/21 Learning Officer Goal (LTG) Pt will be able to sit as needed for work with appropriate breaks from sitting (every hour stand and move for about 30 sec) without inc pain. LTG Duration 05/11/21 Assessment Summary Assessment Pt improved with comfort w/ knee to chest after manual treatment. Pt was able to tolerate advancements iwth core exwercises w/o inc pain. Pt no longer to do knee to opossite chest stretch on R d/ t pain in ant hip vs stretch post Physical Therapy Plan Frequency and Duration Frequency of Treatment 1-2x/week Duration of Treatment 2 months Plan of Care Start Date 03/11/21 Plan of Care End Date 05/11/21 Next Visit Focus/Plan Next Note Type Treatment Note Next Visit Plan advance supine core, cont to work on hip mobility
--- NOTE | 2021-04-02 17:51 | PT.OTN ---
Current Diagnoses Pain in right hip (04/02/21) Pain in left hip (04/02/21) Low back pain (04/02/21) Difficulty in walking, not elsewhere classified (04/02/21) Abnormal posture (04/02/21) Weakness (04/02/21) Physical Therapy Treatment Note PT-OP-A Visit Information Start: 03/11/21 07:27 Freq: Status: Active Protocol: Document 04/02/21 16:09 [facility] (Rec: 04/02/21 17:49 [facility] [id number]) Out-Patient Physical Therapy Visit Information Visit Information Visit Type Treatment Note Visit Start Time 16:51 Visit Stop Time 17:31 Total Visit Minutes 40 Visit Number 4 Number of PERSONNEL RESEARCH PSYCHOLOGIST Visits 0 PT-OP-B Current Condition Start: 03/11/21 07:27 Freq: Status: Active Protocol: Document 03/11/21 14:33 [facility] (Rec: 03/11/21 15:27 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 Pt will follow up with MD next week with X-rays and she talked w/MD about ortho who she likes. Pt reports gradual increase in pain and LB more recent over last 6 months and hips about 1 year ago. Pt reports history of neck pain and AVERY. 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 Pt walks 2x/week and [place] about [place].[address] [place] [address] [address] and sometimes she has pain in R hip and LB like it went out of place or tightness. L knee pain that limits her also (ACL repair x2 , patella reconstruction, LCL repair, total of 10 major surgeries). History of hysterectomy also. Treatment Goals Patient/Caregiver Goals improve ability to sit and stand, ability to put socks/ shoes on, ability to walk, ability to get in/out car PT-OP-C Subjective Start: 03/11/21 07:27 Freq: Status: Active Protocol: Document 04/02/21 16:09 [facility] (Rec: 04/02/21 17:49 [facility] [id number]) OP-PT Subjective Patient Comments Patient Comments pt reports back bothers her more than her hips recently PT-OP-D Balance Start: 03/11/21 07:27 Freq: Status: Active Protocol: Document 03/11/21 14:33 [facility] (Rec: 03/11/21 15:27 [facility] [id number]) Balance Tests Single Limb Standing Single Limb- Right >30 sec w/lat tip R & shear of R hip Single Limb- Left 23 sec w/lat tip L & shear of L hip PT-OP-F Manual Assessment Start: 03/11/21 07:27 Freq: Status: Active Protocol: Document 03/11/21 14:33 [facility] (Rec: 03/11/21 15:27 [facility] [id number]) Manual Assessments Soft Tissue Assessment Soft Tissue Mobility Assessment tightnes in B ES & QL, tenderness B greater trochanter, upper glutes, ITB PT-OP-G Mobility & Gait Start: 03/11/21 07:27 Freq: Status: Active Protocol: Document 03/11/21 14:33 [facility] (Rec: 03/11/21 15:27 [facility] [id number]) OP Gait Assessment Comments Gait Comments Dec push off and dec stacne time LLE PT-OP-J Posture/Palpation/Skin Start: 03/11/21 07:27 Freq: Status: Active Protocol: Document 03/11/21 14:33 [facility] (Rec: 03/11/21 15:27 [facility] [id number]) Posture Evaluation [facility] Postural Classification System Vladislav Postural Classifications Posterior/Posterior Vertebral Compression Test 1 Elbow Flexion Test 2 Lumbar Protective Mechanism Left AP 0 Lumbar Protective Mechanism Right AP 1 Lumbar Protective Mechanism Left PA 0 Lumbar Protective Mechanism Right PA 0 Comments Posture Comments mildly ER femur and tibia R, IR femur L, ER tibia L, R iliac crest higher, equal greater trochanters, SB R & pelvic shear L, knee hyperext standing PT-OP-K Range of Motion Start: 03/11/21 07:27 Freq: Status: Active Protocol: Document 03/11/21 14:33 [facility] (Rec: 03/11/21 15:27 [facility] [id number]) Lumbar Spine Range of Motion Lumbar Spine Active Degrees Flexion 42 Extension 31 Lateral Flexion Left 25 Lateral Flexion Right 20 Hip Goniometric Range of Motion Hip Right Active Flexion w/Knee Flexed 95 Straight Leg Raise 90 Internal Rotation 26 External Rotation 17 Left Active Flexion w/Knee Flexed 98 Straight Leg Raise 90 Internal Rotation 20 External Rotation 14 PT-OP-L Special Tests Start: 03/11/21 07:27 Freq: Status: Active Protocol: Document 03/11/21 14:33 [facility] (Rec: 03/11/21 15:27 [facility] [id number]) Special Tests Lumbar Spine Special Tests Straight Leg Raise Test Results neg Devan Test Results mild tightness Slump Test Results neg B PT-OP-M Strength Start: 03/11/21 07:27 Freq: Status: Active Protocol: Document 03/11/21 14:33 [facility] (Rec: 03/11/21 15:27 [facility] [id number]) Hip Strength Hip Manual Muscle Testing Right Flexion (L2) 4- Good- Extension (S1) 4- Good- Abduction 3+ Fair+ Adduction 4- Good- External Rotation 4- Good- Internal Rotation 4 Good Left Flexion (L2) 3+ Fair+ Extension (S1) 4- Good- Abduction 3 Fair Adduction 4- Good- External Rotation 4- Good- Internal Rotation 4 Good Comments pain hip IR Knee Strength Knee Manual Muscle Testing Right Flexion (S2) 4+ Good+ Extension (L3) 4 Good Left Flexion (S2) 4 Good Extension (L3) 4- Good- Ankle/Foot Strength Ankle and Foot Manual Muscle Testing Right Dorsiflexion (L4) 5 Normal Plantarflexion (S1) 5 Normal Left Dorsiflexion (L4) 5 Normal Plantarflexion (S1) 5 Normal Comments 20 heel raises B PT-OP-Q Treatments Start: 03/11/21 07:27 Freq: Status: Active Protocol: Document 04/02/21 16:09 [facility] (Rec: 04/02/21 17:49 [facility] [id number]) Therapeutic Exercises Supine Exercises bridge Supine Exercise Name w/alt march Side bilateral Reps/Minutes 10 pelvic tilt Supine Exercise Name Tabd w/alt march Side bilateral Reps/Minutes 20 Sidelying Exercises clamshells Side bilateral Reps/Minutes 15 Standing Exercises side step Side bilateral Reps/Minutes 20ft x2 hip ext Side bilateral Reps/Minutes 15 hip abd Side bilateral Reps/Minutes 15 Manual Therapy Treatment Soft Tissue Mobilization 4 Body Location piriformis & lower glutes R Mobilization Type Rolling,Strumming,Sustained Pressure Intensity/Depth Moderate Body Position Prone Comments w/hip ER/IR 3 Body Location iliacus L Mobilization Type Sustained Pressure Intensity/Depth Moderate 2 Body Location adductors R Mobilization Type Rolling,Sustained Pressure Intensity/Depth Moderate Body Position Supine Comments w/hip IR/ER Joint Mobilizations 4 Joint R hip Direction inf FM & ER hip on axis FM 3 Joint sacrum Direction LIZBETH PT-OP-T Assessment and Plan Start: 03/11/21 07:27 Freq: Status: Active Protocol: Document 04/02/21 16:09 [facility] (Rec: 04/02/21 17:49 [facility] [id number]) Physical Therapy Assessment Goals walking Short Term Goal (STG) Pt will be able to tolerate short bouts of standing as needed w/o inc hp or back pain for daily activities. STG Duration 04/11/21 Unpaid Intern Goal (LTG) Pt will be able to ambulate for at least 2 miles without inc pain in LB or hips. LTG Duration 05/11/21 ROM Short Term Goal (STG) pt will have improved flex and ER of B hips by 10 deg ea STG Duration 04/11/21 Unpaid Intern Goal (LTG) Pt will be able to don shoes and socks w/o inc pain or difficulty B LTG Duration 05/11/21 strenth Short Term Goal (STG) Pt will be indep w/ HEP. STG Duration 04/11/21 Unpaid Intern Goal (LTG) Pt will score at least 3/5 on LPM and 5/5 on all LE MMT to show improved strengh to inc ease w/daily activities. LTG Duration 05/11/21 activities Short Term Goal (STG) pt will be able to get in/out of the car w/o inc pain. STG Duration 04/11/21 Custodial Goal (LTG) Pt will be able to sit as needed for work with appropriate breaks from sitting (every hour stand and move for about 30 sec) without inc pain. LTG Duration 05/11/21 Assessment Summary Assessment Pt did well with exercises today with fatigue most w/ sidestepping. She did well with supine core exercises without requiring cues. Pt improved w/R hip ER w/manual treatment Physical Therapy Plan Frequency and Duration Frequency of Treatment 1-2x/week Duration of Treatment 2 months Plan of Care Start Date 03/11/21 Plan of Care End Date 05/11/21 Next Visit Focus/Plan Next Note Type Treatment Note Next Visit Plan advance supine core, cont to work on hip mobility
--- NOTE | 2021-04-27 18:20 | PT.OTN ---
Current Diagnoses Pain in right hip (04/27/21) Pain in left hip (04/27/21) Low back pain (04/27/21) Difficulty in walking, not elsewhere classified (04/27/21) Abnormal posture (04/27/21) Weakness (04/27/21) Physical Therapy Treatment Note PT-OP-A Visit Information Start: 03/11/21 07:27 Freq: Status: Active Protocol: Document 04/27/21 18:11 [facility] (Rec: 04/27/21 18:20 [facility] [id number]) Out-Patient Physical Therapy Visit Information Visit Information Visit Type Treatment Note Visit Start Time 16:45 Visit Stop Time 17:45 Total Visit Minutes 60 Visit Number 5 Number of CLINICAL ADMISSIONS MANAGER Visits 0 PT-OP-B Current Condition Start: 03/11/21 07:27 Freq: Status: Active Protocol: Document 03/11/21 14:33 [facility] (Rec: 03/11/21 15:27 [facility] [id number]) Current Condition History of Current Condition Onset Date 6 months to 1 year Current Complaints B hips, LB History of Current Condition Pt reports severe arthritis on R hip and mod on 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 Pt will follow up with MD next week with X-rays and she talked w/MD about ortho who she likes. Pt reports gradual increase in pain and LB more recent over last 6 months and hips about 1 year ago. Pt reports history of neck pain and AVERY. 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 Pt walks 2x/week and walks about 1.[address] [place] [address] [employer] [address] and sometimes she has pain in R hip and LB like it went out of place or tightness. L knee pain that limits her also (ACL repair x2 , patella reconstruction, LCL repair, total of 10 major surgeries). History of hysterectomy also. Treatment Goals Patient/Caregiver Goals improve ability to sit and stand, ability to put socks/ shoes on, ability to walk, ability to get in/out car PT-OP-C Subjective Start: 03/11/21 07:27 Freq: Status: Active Protocol: Document 04/27/21 18:11 [facility] (Rec: 04/27/21 18:20 [facility] [id number]) OP-PT Subjective Patient Comments Patient Comments Pt reports she is doing well with exercises. Her hips have been doing well but back has been bothering her espeically when standing ext. PT-OP-D Balance Start: 03/11/21 07:27 Freq: Status: Active Protocol: Document 03/11/21 14:33 [facility] (Rec: 03/11/21 15:27 [facility] [id number]) Balance Tests Single Limb Standing Single Limb- Right >30 sec w/lat tip R & shear of R hip Single Limb- Left 23 sec w/lat tip L & shear of L hip PT-OP-F Manual Assessment Start: 03/11/21 07:27 Freq: Status: Active Protocol: Document 03/11/21 14:33 [facility] (Rec: 03/11/21 15:27 [facility] [id number]) Manual Assessments Soft Tissue Assessment Soft Tissue Mobility Assessment tightnes in B ES & QL, tenderness B greater trochanter, upper glutes, ITB PT-OP-G Mobility & Gait Start: 03/11/21 07:27 Freq: Status: Active Protocol: Document 03/11/21 14:33 [facility] (Rec: 03/11/21 15:27 [facility] [id number]) OP Gait Assessment Comments Gait Comments Dec push off and dec stacne time LLE PT-OP-J Posture/Palpation/Skin Start: 03/11/21 07:27 Freq: Status: Active Protocol: Document 03/11/21 14:33 [facility] (Rec: 03/11/21 15:27 [facility] [id number]) Posture Evaluation Vladislav Postural Classification System Vladislav Postural Classifications Posterior/Posterior Vertebral Compression Test 1 Elbow Flexion Test 2 Lumbar Protective Mechanism Left AP 0 Lumbar Protective Mechanism Right AP 1 Lumbar Protective Mechanism Left PA 0 Lumbar Protective Mechanism Right PA 0 Comments Posture Comments mildly ER femur and tibia R, IR femur L, ER tibia L, R iliac crest higher, equal greater trochanters, SB R & pelvic shear L, knee hyperext standing PT-OP-K Range of Motion Start: 03/11/21 07:27 Freq: Status: Active Protocol: Document 03/11/21 14:33 [facility] (Rec: 03/11/21 15:27 [facility] [id number]) Lumbar Spine Range of Motion Lumbar Spine Active Degrees Flexion 42 Extension 31 Lateral Flexion Left 25 Lateral Flexion Right 20 Hip Goniometric Range of Motion Hip Right Active Flexion w/Knee Flexed 95 Straight Leg Raise 90 Internal Rotation 26 External Rotation 17 Left Active Flexion w/Knee Flexed 98 Straight Leg Raise 90 Internal Rotation 20 External Rotation 14 PT-OP-L Special Tests Start: 03/11/21 07:27 Freq: Status: Active Protocol: Document 03/11/21 14:33 [facility] (Rec: 03/11/21 15:27 [facility] [id number]) Special Tests Lumbar Spine Special Tests Straight Leg Raise Test Results neg Devan Test Results mild tightness Slump Test Results neg B PT-OP-M Strength Start: 03/11/21 07:27 Freq: Status: Active Protocol: Document 03/11/21 14:33 [facility] (Rec: 03/11/21 15:27 [facility] [id number]) Hip Strength Hip Manual Muscle Testing Right Flexion (L2) 4- Good- Extension (S1) 4- Good- Abduction 3+ Fair+ Adduction 4- Good- External Rotation 4- Good- Internal Rotation 4 Good Left Flexion (L2) 3+ Fair+ Extension (S1) 4- Good- Abduction 3 Fair Adduction 4- Good- External Rotation 4- Good- Internal Rotation 4 Good Comments pain hip IR Knee Strength Knee Manual Muscle Testing Right Flexion (S2) 4+ Good+ Extension (L3) 4 Good Left Flexion (S2) 4 Good Extension (L3) 4- Good- Ankle/Foot Strength Ankle and Foot Manual Muscle Testing Right Dorsiflexion (L4) 5 Normal Plantarflexion (S1) 5 Normal Left Dorsiflexion (L4) 5 Normal Plantarflexion (S1) 5 Normal Comments 20 heel raises B PT-OP-Q Treatments Start: 03/11/21 07:27 Freq: Status: Active Protocol: Document 04/27/21 18:11 [facility] (Rec: 04/27/21 18:20 [facility] [id number]) Therapeutic Activity Therapeutic Activity posture Comments 1.sitting posture unsuported working on back position & WB to pelvic floor 2. standing posture working on unlocking knees & back position sleep Comments s/l propping w/pillows and towels Manual Therapy Treatment Soft Tissue Mobilization 4 Body Location piriformis & lower glutes R Mobilization Type Rolling,Strumming,Sustained Pressure Intensity/Depth Moderate Body Position Prone Comments w/hip ER/IR 1 Body Location ES B & R QL Mobilization Type Rolling Intensity/Depth Moderate Body Position Sidelying Joint Mobilizations 4 Joint R hip Direction ER hip on axis FM 3 Joint sacrum Direction LIZBETH & caudal L FM 2 Joint R innominate ER & L inf FM Self-Care/Home Management Treatment Education Other Education edu to rest, ice and drink a lot of fluids w/gentle ROM at home. if pain gets worse or is not getting better then to call MD or see a MD. PT-OP-T Assessment and Plan Start: 03/11/21 07:27 Freq: Status: Active Protocol: Document 04/27/21 18:11 [facility] (Rec: 04/27/21 18:20 [facility] [id number]) Physical Therapy Assessment Goals walking Short Term Goal (STG) Pt will be able to tolerate short bouts of standing as needed w/o inc hp or back pain for daily activities. STG Duration 04/11/21 Fpc Goal (LTG) Pt will be able to ambulate for at least 2 miles without inc pain in LB or hips. LTG Duration 05/11/21 ROM Short Term Goal (STG) pt will have improved flex and ER of B hips by 10 deg ea STG Duration 04/11/21 Fpc Goal (LTG) Pt will be able to don shoes and socks w/o inc pain or difficulty B LTG Duration 05/11/21 strenth Short Term Goal (STG) Pt will be indep w/ HEP. STG Duration 04/11/21 Spring Maker Goal (LTG) Pt will score at least 3/5 on LPM and 5/5 on all LE MMT to show improved strengh to inc ease w/daily activities. LTG Duration 05/11/21 activities Short Term Goal (STG) pt will be able to get in/out of the car w/o inc pain. STG Duration 04/11/21 Fpc Goal (LTG) Pt will be able to sit as needed for work with appropriate breaks from sitting (every hour stand and move for about 30 sec) without inc pain. LTG Duration 05/11/21 Assessment Summary Assessment Pt did well with edcuation of postural information to help w /pain in AM and in standing. She has difficulty with getting lumbar spine to relax into more netural position. Did prone work for mobs & soft tissue and when pt started to push off to sit up from prone , pt had sharp pain in LB and had to lay back down and was cued to go up into quadruped to stretch. Flex was painful. Even after STM in s/l, pt still reported signficiant pain so ice given to pt. Pt reports no inc pain when manual was being done, just when she moved out of prone position. Pt given edu on what to do to help dec pain. Physical Therapy Plan Frequency and Duration Frequency of Treatment 1-2x/week Duration of Treatment 2 months Plan of Care Start Date 03/11/21 Plan of Care End Date 05/11/21 Next Visit Focus/Plan Next Note Type Progress Note Next Visit Plan assess pt back and how pt is doing
--- NOTE | 2021-06-22 14:59 | PT.OPDS ---
Current Diagnoses Pain in right hip (04/27/21) Pain in left hip (04/27/21) Low back pain (04/27/21) Difficulty in walking, not elsewhere classified (04/27/21) Abnormal posture (04/27/21) Weakness (04/27/21) Visit Care Team Role Provider Type Sarah Bae MD Attending Provider Physician Primary Care Provider Referring Provider [facility]ty: [facility] Address: [address] [place] [address], [facility] [place] [place], [facility] Email: [email or web address] Visit Number Visit Number 5 Discharge Summary PT-OP-B Current Condition Start: 03/11/21 07:27 Freq: Status: Active Protocol: Document 03/11/21 14:33 [facility] (Rec: 03/11/21 15:27 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 Pt will follow up with MD next week with X-rays and she talked w/MD about ortho who she likes. Pt reports gradual increase in pain and LB more recent over last 6 months and hips about 1 year ago. Pt reports history of neck pain and AVERY. 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 Pt walks 2x/week and walks about 1.5 [place] [address] and sometimes she has pain in R hip and LB like it went out of place or tightness. L knee pain that limits her also (ACL repair x2 , patella reconstruction, LCL repair, total of 10 major surgeries). History of hysterectomy also. Treatment Goals Patient/Caregiver Goals improve ability to sit and stand, ability to put socks/ shoes on, ability to walk, ability to get in/out car PT-OP-C Subjective Start: 03/11/21 07:27 Freq: Status: Active Protocol: Document 04/27/21 18:11 [facility] (Rec: 04/27/21 18:20 [facility] [id number]) OP-PT Subjective Patient Comments Patient Comments Pt reports she is doing well with exercises. Her hips have been doing well but back has been bothering her espeically when standing ext. PT-OP-D Balance Start: 03/11/21 07:27 Freq: Status: Active Protocol: Document 03/11/21 14:33 [facility] (Rec: 03/11/21 15:27 [facility] [id number]) Balance Tests Single Limb Standing Single Limb- Right >30 sec w/lat tip R & shear of R hip Single Limb- Left 23 sec w/lat tip L & shear of L hip PT-OP-F Manual Assessment Start: 03/11/21 07:27 Freq: Status: Active Protocol: Document 03/11/21 14:33 [facility] (Rec: 03/11/21 15:27 [facility] [id number]) Manual Assessments Soft Tissue Assessment Soft Tissue Mobility Assessment tightnes in B ES & QL, tenderness B greater trochanter, upper glutes, ITB PT-OP-G Mobility & Gait Start: 03/11/21 07:27 Freq: Status: Active Protocol: Document 03/11/21 14:33 [facility] (Rec: 03/11/21 15:27 [facility] [id number]) OP Gait Assessment Comments Gait Comments Dec push off and dec stacne time LLE PT-OP-J Posture/Palpation/Skin Start: 03/11/21 07:27 Freq: Status: Active Protocol: Document 03/11/21 14:33 [facility] (Rec: 03/11/21 15:27 [facility] [id number]) Posture Evaluation [facility] Postural Classification System Vladislav Postural Classifications Posterior/Posterior Vertebral Compression Test 1 Elbow Flexion Test 2 Lumbar Protective Mechanism Left AP 0 Lumbar Protective Mechanism Right AP 1 Lumbar Protective Mechanism Left PA 0 Lumbar Protective Mechanism Right PA 0 Comments Posture Comments mildly ER femur and tibia R, IR femur L, ER tibia L, R iliac crest higher, equal greater trochanters, SB R & pelvic shear L, knee hyperext standing PT-OP-K Range of Motion Start: 03/11/21 07:27 Freq: Status: Active Protocol: Document 03/11/21 14:33 [facility] (Rec: 03/11/21 15:27 [facility] [id number]) Lumbar Spine Range of Motion Lumbar Spine Active Degrees Flexion 42 Extension 31 Lateral Flexion Left 25 Lateral Flexion Right 20 Hip Goniometric Range of Motion Hip Right Active Flexion w/Knee Flexed 95 Straight Leg Raise 90 Internal Rotation 26 External Rotation 17 Left Active Flexion w/Knee Flexed 98 Straight Leg Raise 90 Internal Rotation 20 External Rotation 14 PT-OP-L Special Tests Start: 03/11/21 07:27 Freq: Status: Active Protocol: Document 03/11/21 14:33 [facility] (Rec: 03/11/21 15:27 [facility] [id number]) Special Tests Lumbar Spine Special Tests Straight Leg Raise Test Results neg Devan Test Results mild tightness Slump Test Results neg B PT-OP-M Strength Start: 03/11/21 07:27 Freq: Status: Active Protocol: Document 03/11/21 14:33 [facility] (Rec: 03/11/21 15:27 [facility] [id number]) Hip Strength Hip Manual Muscle Testing Right Flexion (L2) 4- Good- Extension (S1) 4- Good- Abduction 3+ Fair+ Adduction 4- Good- External Rotation 4- Good- Internal Rotation 4 Good Left Flexion (L2) 3+ Fair+ Extension (S1) 4- Good- Abduction 3 Fair Adduction 4- Good- External Rotation 4- Good- Internal Rotation 4 Good Comments pain hip IR Knee Strength Knee Manual Muscle Testing Right Flexion (S2) 4+ Good+ Extension (L3) 4 Good Left Flexion (S2) 4 Good Extension (L3) 4- Good- Ankle/Foot Strength Ankle and Foot Manual Muscle Testing Right Dorsiflexion (L4) 5 Normal Plantarflexion (S1) 5 Normal Left Dorsiflexion (L4) 5 Normal Plantarflexion (S1) 5 Normal Comments 20 heel raises B PT-OP-T Assessment and Plan Start: 03/11/21 07:27 Freq: Status: Active Protocol: Document 06/22/21 14:58 [facility] (Rec: 06/22/21 14:59 [facility] [id number]) Physical Therapy Assessment Assessment Summary Assessment Pt cancelled last scheduled appts and did not make any further appts. DC at this time . Physical Therapy Plan Discharge Physical Therapy Discharge Reasons No Longer Attending PT
== END 2021-09-08 09:48 ==
LOC: PHYS 16:45
PROVIDERS: PCP Family Medicine; Referring Provider Family Medicine; Visit Provider Family Medicine
DX: M25.551 Pain in right hip (principal); M54.5 Low back pain; R53.1 Weakness; R26.2 Difficulty in walking, not elsewhere classified; M25.552 Pain in left hip; R29.3 Abnormal posture
CPT/HCPCS: 97010; 97110; 97140; 97162; 97530

== ENCOUNTER → 2021-09-21 14:35 | Outpatient (CLI) | payer OTHER, SELFPAY ==
[2021-09-21 15:35] LABS: COVID19 -Nasal RAPID Negative (Negative)
== END ==
PROVIDERS: PCP Family Medicine; Visit Provider Physical Medicine & Rehabilitation
DX: Z20.822 Contact with and (suspected) exposure to COVID-19 (principal)
CPT/HCPCS: 87635; C9803

== ENCOUNTER 2021-09-22 12:24 | Outpatient (CLI) | payer OTHER, SELFPAY ==
[2021-09-22] VITALS (8 sets, daily range): BP systolic 128–191; BP diastolic 76–98; PULSE 71–87; RESP 13–18; TEMP 37.2; O2SAT 94–100
--- NOTE | 2021-09-22 12:27 | DI.RAD.S_ITS ---
PROCEDURE: PAIN L/S FACET INJ/BLK 1ST DENY COMPARISON: Outside Facility, RG, MRI L-SPINE W/O CONTRAST, 05/07/2021, 15:36. INDICATIONS: SPONDYLOSIS FINDINGS: Fluoroscopic spot filming was performed to verify placement of spinal needles on both sides at the L3-L4 and L4-L5 levels, as labeled on the films. Appropriate location of the needle tips was confirmed by injection of iodinated contrast. IMPRESSION: Intraprocedural examination within normal limits. Dictated by: Martell Hein M.D. on 09/22/2021 at 12:59 Approved by: Martell Hein M.D. on 09/22/2021 at 13:00
[2021-09-22] MEDS: MIDAZOLAM 5 MG/5 ML VIAL IV (12:59)
[2021-09-22] MEDS: fentaNYL 100 MCG/2 ML INJ 50 MCG IV (12:59)
[2021-09-22] MEDS: BUPIVACAINE 0.5% (PF) VIAL 5 ML INJ (13:03)
[2021-09-22] MEDS: IOPAMIDOL 15 ML VIAL 3 ML INJ (13:03)
[2021-09-22] MEDS: BETAMETHASONE 30 MG/5 ML MDV 12 MG INJ (13:03)
[2021-09-22] MEDS: LIDOCAINE 1% 20 ML (13:03)
--- NOTE | 2021-09-22 13:16 | P.PCN_ITS ---
Date/Time/Diagnoses Date of procedure: 09/22/21 Time of procedure: 13:16 Pre-procedure diagnosis: 1. FACET ARTHROPATHY 2. AXIAL LBP 3. MULTILEVEL DDD Post-procedure diagnosis: same Procedure Notes Procedure: 1. FLUORSCOPICALLY GUIDED CONTRAST CONTROLLED FACET JOINT INJECTIONS BILATERAL L3/4, L4/5 Indications: Ninfa is referred by Dr. Bae for treatment of Axial LBP Physician: Rodger Camargo Total Fluoroscopy time (seconds): 12 Total sedation minutes: 12 Complications: none Procedure in detail & Post-procedure care: FINDINGS Multilevel Facet Arthropathy with Clinically significant axial LBP DESCRIPTION OF PROCEDURE Fluoroscopically guided, contrast-controlled bilateral L3/4, L4/5 facet joint injections. Following review of allergy and review of potential side effects and complications, including, but not necessarily limited to, infection, allergic reaction, local tissue breakdown, stroke, temporary or permanent nerve injury, paralysis, and possible , the patient indicated that the patient understood and agreed to proceed. An informed consent document was signed by the patient, witnessed by a nurse, and placed in the patient's chart. Additionally, other treatment options including medications, modalities, and physical therapy were reviewed with the patient. After review of previous anaesthesic history and IV conscious sedation the patient was deemed safe to proceed with today's procedure with IV conscious sedation as ASA class II designation. Safety time-out was performed to confirm patient ID, procedure to be performed and site of procedure. IV sedation was accomplished with a combination of 2mg of Versed and 50mcg of Fentanyl was administered by the RN after DO order, titrated to patient comfort during the course of the procedure while the patient remained responsive to all verbal commands. In the prone position, following sterile prep and drape of the lumbar region, the posterior aspect of the L3/4, L4/5 facet joints were identified fluoroscopically. The skin was anesthetized via a 25-gauge 1.5-inch needle with 1% lidocaine solution into the corresponding facet joints. At this point, a 22- gauge 3.5-inch spinal needle was atraumatically introduced and advanced under fluoroscopic guidance into the corresponding facet joints. Following negative aspiration, injections of approximately 0.2cc of Isovue 200 confirmed intera rticular placement without vascular uptake. The identical procedure was then performed at the L3/4, L4/5 facet joints on the left. Radiological data, including multiple fluoroscopic views of the lumbosacral spine, reveal a spinal needle at the L3/4, L4/5 facet joints bilaterally. Subsequent views show flow of contrast material both superiorly and inferiorly within the joint space without vascular or intrathecal uptake. At this point, a total of 0.5cc including a mixture of 0.25cc Marcaine and 0.25cc betamethasone was injected without complication into each of the corresponding facet joints. The patient tolerated the procedure well without signs or symptoms of complications prior to transfer to the recovery area continued monitoring without incident. The patient was then transferred to the recovery area where they were observed for an appropriate period of time after the injection. The patient reported a VAS score of 7 prior to the procedure and a post-procedure VAS of 0. POST OP INSTRUCTIONS The patient was provided a Pain Log to continue to record their response to the target-specific procedure prior to follow-up visit with their referring physician. Additionally, specific post-injection care instructions and a contact number to our office were provided if concerns arise regarding possible complications associated with the procedure are suspected.
== END 2021-09-22 13:30 | disposition home or self-care (01) ==
LOC: RAD 12:26
PROVIDERS: PCP Family Medicine; Referring Provider Physical Medicine & Rehabilitation; Visit Provider Physical Medicine & Rehabilitation
DX: M47.816 Spondylosis without myelopathy or radiculopathy, lumbar region (principal)
CPT/HCPCS: 64493; 64494; 99152; J0702; J2250; J3010

== ENCOUNTER → 2021-10-02 16:47 | Outpatient (CLI) | payer OTHER, SELFPAY ==
--- NOTE | 2021-10-02 | DI.RAD.S_ITS ---
PROCEDURE: XR ELBOW RT MIN 3V INDICATIONS: Medial epicondylitis, right elbow TECHNIQUE: 3 views of the elbow were acquired. COMPARISON: None. FINDINGS: Bones: No fractures or dislocations. Coronoid process osteophytosis. Soft tissues: No elbow joint effusion. No suspicious soft tissue calcifications. IMPRESSION: No acute osseous abnormality. Dictated by: Maximiliano Hopkins M.D. on 10/02/2021 at 17:23 Approved by: Maximiliano Hopkins M.D. on 10/02/2021 at 17:23
== END ==
PROVIDERS: PCP Family Medicine; Referring Provider Family Medicine; Visit Provider Family Medicine
DX: M77.01 Medial epicondylitis, right elbow (principal)
CPT/HCPCS: 73080

== ENCOUNTER → 2022-03-15 10:23 | Outpatient (CLI) | payer OTHER, SELFPAY ==
[2022-03-15 13:20] LABS: COVID19 -Nasal RAPID Negative (Negative)
== END ==
PROVIDERS: PCP Family Medicine; Visit Provider Physical Medicine & Rehabilitation
DX: Z20.822 Contact with and (suspected) exposure to COVID-19 (principal)
CPT/HCPCS: 87635; C9803

== ENCOUNTER 2022-03-16 08:15 | Outpatient (CLI) | payer OTHER, SELFPAY ==
[2022-03-16] VITALS (10 sets, daily range): BP systolic 109–165; BP diastolic 66–104; PULSE 79–98; RESP 14–21; TEMP 36.2; O2SAT 95–100
--- NOTE | 2022-03-16 08:16 | DI.RAD.S_ITS ---
PROCEDURE: PAIN L/S TRANSFORAM INJECT DENY COMPARISON: None. INDICATIONS: SPONDYLOSIS FINDINGS: Fluoroscopic spot filming was performed to verify placement of spinal needles on both sides at the L4-L5 level, as labeled on the films. Appropriate location of the needle tips was confirmed by injection of iodinated contrast. IMPRESSION: Intraprocedural examination demonstrating appropriate positions of the needles. Dictated by: Martell Hein M.D. on 03/16/2022 at 9:53 Approved by: Martell Hein M.D. on 03/16/2022 at 9:53
[2022-03-16] MEDS: IOPAMIDOL 15 ML VIAL 3 ML INJ (09:22)
[2022-03-16] MEDS: BUPIVACAINE 0.25% (PF) VIAL 2 ML INJ (09:22)
[2022-03-16] MEDS: BETAMETHASONE 30 MG/5 ML MDV 6 MG INJ (09:22)
[2022-03-16] MEDS: DEXAMETHASONE 10 MG/ML VIAL 20 MG INJ (09:23)
[2022-03-16] MEDS: MIDAZOLAM 2 MG/2 ML VIAL 4 MG IV (09:24)
--- NOTE | 2022-03-16 09:32 | PM.PROC.IR.1 ---
Date/Time/Diagnoses Date of procedure: 03/16/22 Time of procedure: 09:32 Pre-procedure diagnosis: 1. FORAMINAL STENOSIS WITH LE SYMPTOMS Procedure Notes Procedure: 1. FLUOROSCOPICALLY GUIDED CONTRAST CONTROLLED TRANSFORAMINAL EPIDURAL STEROID INJECTION - BILATERAL L4/5 TFESI Indications: Ninfa is referred by Dr. Bae for treatment of Foraminal Stenosis with bilateral LE Symptoms Physician: Rodger Camargo Total Fluoroscopy time (seconds): 15 Total sedation minutes: 16 Complications: none Procedure in detail & Post-procedure care: FINDINGS Foraminal Nerve Root Compression secondary to disc disease and facet hypertrophy DESCRIPTION OF PROCEDURE Following review of allergy and review of potential side effects and complications, including, but not necessarily limited to, infection, allergic reaction, local tissue breakdown, stroke, temporary or permanent nerve injury, paralysis, and possible , the patient indicated that the patient understood and agreed to proceed. An informed consent document was signed by the patient, witnessed by a nurse, and placed in the patient's chart. Additionally, other treatment options including medications, modalities, and physical therapy were reviewed with the patient. After review of previous anaesthesic history and IV conscious sedation the patient was deemed safe to proceed with today?s procedure with IV conscious sedation as ASA class II designation. Safety time-out was performed to confirm patient ID, procedure to be performed and site of procedure. IV sedation was accomplished with a combination of 4mg of Versed was administered by the RN after DO order, titrated to patient comfort during the course of the procedure while the patient remained responsive to all verbal commands In the prone position following sterile prep and drape of the lumbar region, the right L4/5 posterior neuroforamen was identified fluoroscopically. The skin was anesthetized via a 25-gauge 1.5-inch needle with 1% lidocaine solution. At this point, a 25-gauge 3.5-inch spinal needle was atraumatically introduced and advanced under fluoroscopic guidance through the posterior right L4/5 neuroforamen to approximately the anterior aspect of the canal. Depth was confirmed on lateral view. Following negative aspiration, injection of approximately 1.5cc of Isovue 200 under live fluoroscopy in the AP view confirmed excellent flow along the nerve root, into the epidural space without vascular or intrathecal uptake observed Radiological data, including multiple fluoroscopic views of the lumbosacral spine, reveal a spinal needle at the right L4/5 posterior neuroforamen. Subsequent views show flow of contrast material flowing superiorly and inferiorly along the nerve root confirming epidural flow. Subsequently, a test dose of 1.5cc of 1% lidocaine solution was administered and patient was observed for two minutes for signs or symptoms of complications, including abdominal pain, shortness of breath, bilateral upper or lower extremity weakness, nausea and vomiting, prior to steroid injection. At this point, a total of 3cc or 20mg of dexamethasone and 6mg betamethasone was injected without incident. Attention was then refocused to the left L4/5 level where the identical procedure was replicated. The procedure tolerated the procedure well without signs or symptoms of complications prior to transfer to the recovery area continued monitoring without incident. The patient was then transferred to the recovery area where they were observed for an appropriate time after the injection. The patient reported a VAS score of 7 prior to the procedure and a post-procedure VAS of 0. POST OP INSTRUCTIONS The patient was provided a Pain Log to continue to record their response to the target-specific procedure prior to follow-up visit with their referring physician. Additionally, specific post-injection care instructions and a contact number to our office were provided if concerns arise regarding possible complications associated with the procedure are suspected.
== END 2022-03-16 09:55 | disposition home or self-care (01) ==
LOC: RAD 08:16
PROVIDERS: PCP Family Medicine; Referring Provider Physical Medicine & Rehabilitation; Visit Provider Physical Medicine & Rehabilitation
DX: M48.061 Spinal stenosis, lumbar region without neurogenic claudication (principal); M51.16 Intervertebral disc disorders with radiculopathy, lumbar region
CPT/HCPCS: 64483; 99152; J0702; J1100; J2250

== ENCOUNTER → 2022-05-27 14:56 | Outpatient (CLI) | payer OTHER, SELFPAY ==
--- NOTE | 2022-05-27 14:58 | DI.RAD.S_ITS ---
PROCEDURE: XR ANKLE LT MIN 3V INDICATIONS: left ankle pain TECHNIQUE: 3 views of the ankle were acquired. COMPARISON: None. FINDINGS: Bones: No acute fractures or dislocations. Ankle mortise is normally aligned. No suspicious bony lesions. Mild degenerative spurring of the dorsal talonavicular joint. Soft tissues: No suspicious soft tissue calcification. IMPRESSION: No acute osseous abnormality. If the symptoms persist, consider cross sectional imaging such as MRI or CT for further assessment. Approved by: Arvind Sanchez M.D. on 05/27/2022 at 19:45
--- NOTE | 2022-05-27 14:58 | DI.RAD.S_ITS ---
PROCEDURE: XR FOOT LT MIN 3V INDICATIONS: Left ankle pain TECHNIQUE: 3 views of the foot were acquired. COMPARISON: None. FINDINGS: Bones: No acute fractures or dislocations. No suspicious bony lesions. Mild scattered degenerative changes. Soft tissues: No suspicious soft tissue calcifications. IMPRESSION: No acute osseous abnormality. If the symptoms persist, consider cross sectional imaging such as MRI or CT for further assessment. Approved by: Arvind Sanchez M.D. on 05/27/2022 at 19:51
== END ==
PROVIDERS: PCP Family Medicine; Referring Provider Family Medicine; Visit Provider Family Medicine
DX: M25.572 Pain in left ankle and joints of left foot (principal)
CPT/HCPCS: 73610; 73630

== ENCOUNTER → 2022-06-14 16:46 | Outpatient (CLI) | payer OTHER, SELFPAY ==
--- NOTE | 2022-06-14 | DI.MRI.S_ITS ---
PROCEDURE: MRFOOT LT WO CON INDICATIONS: Pain in left ankle and joints of left foot TECHNIQUE: Noncontrast sagittal T1 spin echo and T2 fast spin echo with fat saturation, long-axis T1 spin echo and T2 fast spin echo with fat saturation, short-axis T1 spin echo and T2 fast spin echo with fat saturation through the forefoot. COMPARISON: [facility], CR, XR FOOT LT MIN 3V, 05/27/2022, 15:13. FINDINGS: Image quality: Excellent. Bones and joints: There is marrow edema involving navicular bone with subtle linear internal T2 hyperintense signal extending to its articulation with middle cuneiform concerning for subtle nondisplaced fracture involving navicular bone. No other area of abnormal marrow signal. No metatarsal stress fractures. The sesamoid bones appear in expected positions, without internal edema. Mild osteoarthritic are noted throughout midfoot and forefoot joints with joint space narrowing, subchondral sclerosis and small marginal osteophyte formation most notably in 1st MTP joint. No suspicious intraosseous lesions. Soft tissues: The visualized plantar foot muscles demonstrate normal signal and bulk. Visualized flexor and extensor tendons appear intact, without tenosynovitis. The distal insertions of the peroneus brevis and longus tendons appear intact. The principal Lisfranc ligament appears intact. No soft tissue ganglion cysts or bursal fluid collections. Sagittal images demonstrate no evidence for plantar plate tears. IMPRESSION: 1. Nondisplaced and slightly comminuted fracture involving navicular bone extending to navicular cuneiform joint as above. 2. No other fracture or dislocation. No metatarsal stress fractures. Mild midfoot and forefoot joint osteoarthritis. 3. Forefoot tendons and ligaments are intact. Dictated by: Sabino Whitten M.D. on 06/15/2022 at 8:32 Approved by: Sabino Whitten M.D. on 06/15/2022 at 8:59
--- NOTE | 2022-06-14 | DI.MRI.S_ITS ---
PROCEDURE: MR ANKLE LT WO CON INDICATIONS: Pain in left ankle and joints of left foot TECHNIQUE: Noncontrast sagittal T1 spin echo and T2 fast spin echo with fat saturation, axial proton density fast spin echo and T2 fast spin echo with fat saturation, coronal T1 spin echo and T2 fast spin echo with fat saturation through the ankle/hindfoot. COMPARISON: None. FINDINGS: Image quality: Excellent. Bones and joints: There is extensive marrow edema throughout navicular bone with subtle linear T1 hypointense and T2 hyperintense signal in mid to lateral portion navicular bone extending to its articulation with cuneiform is. No other area of abnormal marrow signal is seen. No hindfoot coalitions. No osteochondral injuries of the talar dome. No pathologic joint effusions. Medial structures: The posterior tibialis is thickened at the level of talonavicular joint. The flexor digitorum longus, and flexor hallucis longus tendons are intact. The posterior tibial neurovascular bundle appears normal within the tarsal tunnel, without extrinsic mass effect. The deep layer (anterior and posterior tibiotalar ligaments) and superficial layer (tibionavicular, tibiospring, and tibiocalcaneal ligaments) of the deltoid ligament appear normal. The spring ligament components (superomedial calcaneonavicular, medioplantar oblique calcaneonavicular, and inferoplantar longitudinal ligaments) are intact. Lateral structures: The anterior talofibular, calcaneofibular, and posterior talofibular ligaments appear thickened with intrasubstance T2 hyperintense signal. More superiorly, the anterior and posterior tibiofibular ligaments appear intact, as is the intermalleolar ligament. The tibiofibular syndesmosis is normal in width at 2 mm or less. The peroneus longus and brevis tendons demonstrate normal location and morphology. Adjacent bony peroneal tubercle and retrotrochlear prominence are normal in size. The sinus tarsi demonstrates normal fatty signal, without edema, fibrosis, or cyst formation. Visualized sinus tarsi components (cervical ligament, interosseous talocalcaneal ligament, roots of the inferior extensor retinaculum) appear normal. The calcaneonavicular and calcaneocuboid components of the bifurcate ligament appear intact. The dorsal calcaneocuboid ligament appears intact. Anterior structures: The tibialis anterior, extensor hallucis longus, and extensor digitorum longus tendons appear intact. The dorsal talonavicular ligament appears intact. Posterior and plantar structures: Achilles tendon is intact. Medial and lateral bands of the plantar fascia are of normal thickness. No abductor digiti quinti muscle atrophy to suggest Draper neuropathy. IMPRESSION: 1. Nondisplaced fracture involving navicular bone extending to its articulation with cuneiforms. No other fracture or dislocation. No osteochondral injuries of talar dome. Mild midfoot and hindfoot joint osteoarthritis. Medial ankle ligaments are intact. 2. Tendinosis involving posterior tibialis tendon at the level of talonavicular joint. 3. Low-grade sprain/intrasubstance partial-thickness tear involving anterior and posterior talofibular ligaments and calcaneofibular ligament. Dictated by: Sabino Whitten M.D. on 06/15/2022 at 9:15 Approved by: Sabino Whitten M.D. on 06/15/2022 at 9:27
== END ==
PROVIDERS: PCP Family Medicine; Referring Provider Family Medicine; Visit Provider Family Medicine
DX: S92.255A Nondisplaced fracture of navicular [scaphoid] of left foot, initial encounter for closed fracture (principal); M19.072 Primary osteoarthritis, left ankle and foot; S93.492A Sprain of other ligament of left ankle, initial encounter; S93.412A Sprain of calcaneofibular ligament of left ankle, initial encounter; M25.572 Pain in left ankle and joints of left foot; X58.XXXA Exposure to other specified factors, initial encounter
CPT/HCPCS: 73718; 73721

== ENCOUNTER → 2022-11-12 17:10 | Outpatient (CLI) | payer OTHER, SELFPAY ==
--- NOTE | 2022-11-12 17:35 | DI.MRI.S_ITS ---
PROCEDURE: MRFOOT LT WO CON INDICATIONS: Nondisplaced fracture of navicular TECHNIQUE: Noncontrast sagittal T1 spin echo and T2 fast spin echo with fat saturation, long-axis T1 spin echo and STIR, short-axis T1 spin echo and T2 fast spin echo with fat saturation through the forefoot. COMPARISON: [facility], , MR FOOT LT WO CON, 06/14/2022, 16:54. FINDINGS: Image quality: Excellent. Bones and joints: Mild osseous edema is seen within the navicular, with decreased prominence of the fracture line and solid osseous fusion throughout the majority of the bone, compatible with healing changes. Focal osseous edema in the talar head as increased when compared to the prior study, possibly related to overlying cartilage loss. Degenerative spurring is seen at the dorsal aspect of the talonavicular joint. Mild degenerative changes of the 1st metatarsophalangeal joint. The sesamoid bones appear in expected positions, without internal edema. No intraosseous lesions. Soft tissues: The visualized plantar foot muscles demonstrate normal signal and bulk. Visualized flexor and extensor tendons appear intact, without tenosynovitis. The distal insertions of the peroneus brevis and longus tendons appear intact. The principal Lisfranc ligament appears intact. No soft tissue ganglion cysts or bursal fluid collections. Sagittal images demonstrate no evidence for plantar plate tears. IMPRESSION: 1. Decreased osseous edema and partial osseous fusion across the fracture line in the navicular are compatible with healing changes. Adjacent talonavicular degenerative changes are seen with increased edema in the talar head. 2. Scattered mild degenerative osteoarthrosis throughout the midfoot and forefoot. Approved by: Arvind Sanchez M.D. on 11/15/2022 at 8:50
== END ==
PROVIDERS: PCP Family Medicine; Referring Provider Orthopaedic Surgery; Visit Provider Orthopaedic Surgery
DX: S92.255D Nondisplaced fracture of navicular [scaphoid] of left foot, subsequent encounter for fracture with routine healing (principal); X58.XXXD Exposure to other specified factors, subsequent encounter
CPT/HCPCS: 73718

== ENCOUNTER → 2022-12-09 17:11 | Outpatient (CLI) | payer OTHER, SELFPAY ==
--- NOTE | 2022-12-09 17:12 | DI.MRI.S_ITS ---
PROCEDURE: MR LUMBAR SPINE WO CON INDICATIONS: Strain of muscle, fascia and tendon of lower back, TECHNIQUE: Noncontrast sagittal T1 spin echo and T2 fast echo, sagittal STIR, and T2 fast spin echo through the lumbar spine. In cases with scoliosis, additional coronal T2 fast spin echo may be performed. COMPARISON: Outside Facility, RG, MRI L-SPINE W/O CONTRAST, 05/07/2021, 15:36. FINDINGS: Image quality: Excellent. Alignment and Curvature: Trace retrolisthesis is present of L4 on L5. Bone Marrow: Marrow is of normal overall signal. No acute vertebral body compression fractures. Spinal Cord: Conus medullaris terminates at the L2 level. Visualized cord demonstrates normal signal and size. Paraspinous Soft Tissues: No paravertebral masses. Discs: [id number] desiccation is present throughout the lumbar spine most severe at L3-4, L4-5. Annular fissure at L4-5 is unchanged. T12-L1: No disc bulge, spinal stenosis or foraminal narrowing. Small right perineural cyst, unchanged. L1-L2: No disc bulge, spinal stenosis or foraminal narrowing. No interval change L2-L3: No disc bulge, spinal stenosis or foraminal narrowing. Mild facet and ligamentum flavum hypertrophy with minimal epidural lipomatosis. Persistent although slightly decreased fluid within the left facet joint. L3-L4: Mild disc bulge without spinal stenosis. Mild left and minimal right foraminal narrowing with facet and ligamentum flavum hypertrophy. Subchondral cystic changes again noted. No interval change. L4-L5: Mild disc bulge with posterior central protrusion slightly more prominent when compared to prior exam. There is mild spinal stenosis, unchanged. Mild bilateral foraminal narrowing with facet and ligamentum flavum hypertrophy. There is mild displacement descending L5 nerve roots within the subarticular zones bilaterally. No interval change. L5-S1: Minimal disc bulge without spinal stenosis or foraminal narrowing. No interval change. IMPRESSION: Relatively stable interval exam. Stable appearance of mild displacement descending L5 nerve roots at the L4-5 level as described above. Dictated by: Dayami Nicole M.D. on 12/10/2022 at 10:47 Approved by: Dayami Nicole M.D. on 12/10/2022 at 11:33
== END ==
PROVIDERS: PCP Family Medicine; Referring Provider Orthopaedic Surgery; Visit Provider Orthopaedic Surgery
DX: S39.012A Strain of muscle, fascia and tendon of lower back, initial encounter (principal); M51.26 Other intervertebral disc displacement, lumbar region; M48.061 Spinal stenosis, lumbar region without neurogenic claudication; M51.36 Other intervertebral disc degeneration, lumbar region; X58.XXXA Exposure to other specified factors, initial encounter
CPT/HCPCS: 72148

== ENCOUNTER → 2023-01-26 14:49 | Outpatient (CLI) | payer OTHER, SELFPAY ==
--- NOTE | 2023-01-26 14:51 | DI.CT.S_ITS ---
PROCEDURE: CT CHEST W CON INDICATIONS: Congenital cyst of mediastinum TECHNIQUE: After the administration of intravenous contrast, 5 mm thick sections acquired from the pulmonary apices to the posterior costophrenic angles. 1 mm axial lung, 5 mm thick coronal and sagittal reformats and 7 mm axial MIP were acquired. For radiation dose reduction, the following was used: automated exposure control, adjustment of mA and/or kV according to patient size. COMPARISON: Outside Film, CT, CT CHEST WITH CONTRAST, 03/05/2021, 9:14. [facility], CT, CT CHEST W CON, 03/06/2018, 12:15. FINDINGS: Image quality: Excellent. Lungs and pleura: No acute air space opacities. No pleural effusions or pneumothorax. Central and peripheral airways are patent and normal in caliber. Mediastinum: Heart size is normal. No pericardial effusion. No mediastinal or hilar adenopathy by size criteria. Thoracic aorta and central pulmonary arteries are normal in size. Esophagus is normal in caliber. Small, chronic hiatal hernia. Bones and chest wall: A thin-walled low-density curvilinear cystic mass abutting the right anterolateral aspect of the T4 vertebral body just above the azygos vein measures about 3.0 x 2.5 x 1.1 cm, minimally larger compared to the most recent prior study where it measured 2.9 by 2.3 x 1.0 cm. There is slight or displacement of adjacent venous branches without attenuation or engulfment. There is no suspicious periosteal reaction of the underlying vertebral body. There are no suspicious bone lesions. No lower neck adenopathy. The thyroid gland is partially imaged and is normal. No axillary or supraclavicular adenopathy. Note chest wall soft tissue abnormalities. Abdomen: Upper abdomen demonstrates mild hepatic steatosis and a 2.1 cm cyst in the posterior right hepatic lobe. Upper abdominal organs are otherwise normal as visualized. IMPRESSION: 1. Minimal size increase in the benign- appearing posterior mediastinal/paravertebral cyst. 2. Small chronic hiatal hernia. 3. Mild hepatic steatosis, also chronic. Dictated by: Latanya Jasso M.D. on 01/27/2023 at 10:42 Approved by: Latanya Jasso M.D. on 01/27/2023 at 10:54
[2023-01-26 15:23] LABS: Estimated Glomerular Filt Rate > 60 mL/min (>60)
== END ==
PROVIDERS: Family Medicine; PCP Family Medicine; Referring Provider Family Medicine; Visit Provider Family Medicine
DX: Q34.1 Congenital cyst of mediastinum (principal); M16.11 Unilateral primary osteoarthritis, right hip; K44.9 Diaphragmatic hernia without obstruction or gangrene; K76.0 Fatty (change of) liver, not elsewhere classified
CPT/HCPCS: 36415; 71260; 82565; Q9967

== ENCOUNTER → 2023-06-17 11:47 | Outpatient (CLI) | payer OTHER, SELFPAY ==
--- NOTE | 2023-06-17 | DI.RAD.S_ITS ---
Bone Density Report Name: SUZANNA MORA Age: 62 Sex: Female Ethnicity: White Date of : 1960 Indication: postmenopausal; screening for osteoporosis; Referring Provider: BERTRAND WALKER Study: Bone densitometry was performed. Exam Date: June 17, 2023 Accession number: [id number] Bone Density: Region BMD T-score Z-score Classification AP Spine(L1-L4) 1.014 -0.3 1.2 Normal Femoral Neck (Left) 0.696 -1.4 0.0 Osteopenia Total Hip (Left) 0.794 -1.2 -0.2 Osteopenia Femoral Neck (Right) 0.844 0.0 1.3 Normal Total Hip (Right) 0.866 -0.6 0.4 Normal Total Hip Mean 0.830 -0.9 0.1 Normal World Health Organization criteria for BMD impression classify patients as: Normal (T-score at or above -1.0), Osteopenia (T-score between -1.0 and -2.5), or Osteoporosis (T-score at or below -2.5). 10-year Fracture Risk(1): Major Osteoporotic Fracture 7.8% Hip Fracture 0.6% Reported Risk Factors: [place] (), Neck BMD=0.696, BMI=30.9 (1) FRAX(R) Version 3.08. Fracture probability calculated for an untreated patient. Fracture probability may be lower if the patient has received treatment. Impression: The patient has low bone mass, based on the Left Femoral Neck T-score. The patient has an estimated ten-year risk of hip fracture of 0.6% and an estimated ten-year risk of major fracture of 7.8%, based on the WHO FRAX algorithm. Discussion: BONE DENSITY IS LOW AT ONE OR MORE SKELETAL SITES. This patient's lowest T-score is low at one or more skeletal sites. It meets the World Health Organization's (WHO) criteria for low bone mass (T-score between -1.0 and -2.5). The patient's 10-year risk of fracture as calculated by FRAX is less than the threshold where pharmacological therapy is recommended by the National Osteoporosis Foundation (NOF). However, all treatment decisions require clinical judgment and consideration of individual patient factors, including patient preferences, comorbidities, previous drug use, risk factors not captured in the FRAX model (e.g., frailty, falls, vitamin D deficiency, increased bone turnover, interval significant decline in bone density) and possible under or overestimation of fracture risk by FRAX. The patient should follow a healthful lifestyle (good nutrition with adequate calcium and vitamin D, and appropriate weight-bearing exercise). Follow-Up: Consider repeating this study in 2 to 3 years to reassess this patient's status, or sooner if there is some new clinical indication. Reported by: CORBY STERLING M.D. on 06/17/2023 12:24:00 PM.
== END ==
PROVIDERS: PCP Family Medicine; Referring Provider Family Medicine; Visit Provider Family Medicine
DX: M84.375S Stress fracture, left foot, sequela (principal); Z78.0 Asymptomatic menopausal state; M85.852 Other specified disorders of bone density and structure, left thigh
CPT/HCPCS: 77080

== ENCOUNTER → 2024-01-25 15:42 | Outpatient (CLI) | payer OTHER, SELFPAY ==
--- NOTE | 2024-01-25 15:43 | DI.CT.S_ITS ---
PROCEDURE: CT CHEST W CON INDICATIONS: Congenital cyst of mediastinum TECHNIQUE: After the administration of intravenous contrast, 5 mm thick sections acquired from the pulmonary apices to the posterior costophrenic angles. 1 mm axial lung, 5 mm thick coronal and sagittal reformats and 7 mm axial MIP were acquired. For radiation dose reduction, the following was used: automated exposure control, adjustment of mA and/or kV according to patient size. COMPARISON: Outside Film, CT, CT CHEST WITH CONTRAST, 03/05/2021, 9:14. [facility], CT, CT CHEST W CON, 01/26/2023, 15:37. FINDINGS: Image quality: Diagnostic. Lower Neck: No enlarged lymph nodes. Thyroid: No thyroid nodules which require sonographic follow up, per consensus guidelines. Axillae: No enlarged lymph nodes. Chest Wall: Unremarkable. Bones: Unremarkable. Lungs and Pleura: No pneumothorax or pleural effusions. No consolidation or suspicious nodules. Heart: Heart size is normal. No pericardial effusion. Thoracic Vessels: The aorta and pulmonary arteries demonstrate normal size. Mediastinum and [place]: No enlarged lymph nodes. A low-density cyst is redemonstrated within the posterior right mediastinum which measures 2.5 x 1.4 cm in the axial plane. This is unchanged when compared with the study dated March 05, 2021. Esophagus: No wall thickening. There is a small hiatal hernia. Upper Abdomen: The liver is diffusely hypodense. A low-density cystic lesion is redemonstrated within the posterior right hepatic lobe. Visualized upper abdomen solid organs and bowel loops appear normal. IMPRESSION: 1. Stable mediastinal cyst. 2. Hepatic steatosis. Dictated by: Marva Farrell M.D. on 01/26/2024 at 11:16 Approved by: Marva Farrell M.D. on 01/26/2024 at 11:20
== END ==
LOC: CT 15:42
PROVIDERS: PCP Family Medicine; Referring Provider Family Medicine; Visit Provider Family Medicine
DX: Q34.1 Congenital cyst of mediastinum (principal); K76.0 Fatty (change of) liver, not elsewhere classified
CPT/HCPCS: 71260; Q9967

== ENCOUNTER → 2024-05-09 16:37 | Outpatient (CLI) | payer OTHER, SELFPAY ==
--- NOTE | 2024-05-09 16:38 | DI.MRI.S_ITS ---
PROCEDURE: MR LUMBAR SPINE WO CON INDICATIONS: CHRONIC MIDLINE LOW BACK PAIN TECHNIQUE: Noncontrast sagittal T1 spin echo and T2 fast echo, sagittal STIR, and T2 fast spin echo through the lumbar spine. In cases with scoliosis, additional coronal T2 fast spin echo may be performed. COMPARISON: Outside Facility, , MRI L-SPINE W/O CONTRAST, 05/07/2021, 15:36. [facility], , MR LUMBAR SPINE WO CON, 12/09/2022, 17:47. FINDINGS: Image quality: Excellent. Alignment and Curvature: There is normal bony alignment. Bone Marrow: Marrow is of normal overall signal. No acute vertebral body compression fractures. Spinal Cord: Conus medullaris terminates at the L1 level. Visualized cord demonstrates normal signal and size. Paraspinous Soft Tissues: No paravertebral masses. T12-L1: Normal appearance. L1-L2: Normal appearance. L2-L3: Normal appearance. L3-L4: Mild loss of disc height is seen. Loss of disc signal is seen. Mild to moderate disc bulge is seen, with a central disc protrusion. Moderate facet joint hypertrophy is seen. Associated hypertrophy of the ligamentum flavum can be seen. There is mild right-sided and [id number] left-sided neural foraminal narrowing. Minimal central canal narrowing is seen. When comparison is made with the prior images, these findings are similar. L4-L5: Mild loss of disc height is seen. Loss of disc signal is seen. Mild to moderate disc bulge is seen, with a central disc protrusion. There is a focal annular fissure seen posteriorly. Mild to moderate facet hypertrophy can be seen. There is moderate right-sided and at least moderate left-sided neural foraminal narrowing. There is a degree of compression seen upon the exiting left L4 nerve root. Mild to moderate central canal narrowing is seen. Mass effect is again seen upon the transiting nerve roots. No significant change from the prior. L5-S1: The disc height and disk signal are relatively well-preserved. Mild to moderate disc bulge is seen. There is a superimposed central disc protrusion. Mild to moderate facet hypertrophy can be seen. There is at least moderate bilateral neural foraminal narrowing seen. Minimal central canal narrowing is seen. When comparison is made with the prior images, these findings are similar. IMPRESSION: Focal lower lumbar spine degenerative changes are seen, which are similar to the prior MRI. Dictated by: Martell Hein M.D. on 05/09/2024 at 17:48 Approved by: Martell Hein M.D. on 05/09/2024 at 17:52
== END ==
PROVIDERS: PCP Family Medicine; Referring Provider Family Medicine; Visit Provider Family Medicine
DX: M47.26 Other spondylosis with radiculopathy, lumbar region (principal); M47.27 Other spondylosis with radiculopathy, lumbosacral region; M54.50 Low back pain, unspecified; G89.29 Other chronic pain
CPT/HCPCS: 72148

== ENCOUNTER → 2024-05-24 16:10 | Outpatient (CLI) | payer OTHER, SELFPAY ==
--- NOTE | 2024-05-24 16:11 | DI.MRI.S_ITS ---
PROCEDURE: MRFOOT LT WO CON INDICATIONS: LEFT FOOT PAIN TECHNIQUE: Multiphasic, multisequence MRI of the forefoot was performed, without intravenous contrast administration. COMPARISON: [facility], MR, MR FOOT LT WO CON, 11/12/2022, 17:41. FINDINGS: Image quality: Excellent. Bones and joints: Mild subchondral cystic changes at the medial aspect of the 1st metatarsal head, degenerative. Mild subchondral marrow edema of the distal aspect of the lateral cuboid, favoring degenerative. There is mild subchondral marrow edema of the talus and the navicula about the talus navicular articulation, favoring degenerative, significantly improved from prior exam. No acute fracture. Soft tissues: The Lisfranc ligament is intact. The visualized plantar fascia is unremarkable. The flexor, in the extensor tendons are unremarkable. Mild subcutaneous edema plantar to the 2nd metatarsal head, likely representing mild adventitial bursitis. No intermetatarsal bursitis. Muscles are normal in signal. IMPRESSION: 1. Multifocal mild degenerative changes of the midfoot, most pronounced at the talonavicular articulation, with significantly improved marrow edema. 2. Mild adventitial bursitis plantar to the 2nd metatarsal head. Dictated by: Marcela Balbuena M.D. on 05/24/2024 at 16:59 Approved by: Marcela Balbuena M.D. on 05/24/2024 at 17:06
== END ==
PROVIDERS: PCP Family Medicine; Referring Provider Orthopaedic Surgery; Visit Provider Orthopaedic Surgery
DX: M77.52 Other enthesopathy of left foot and ankle (principal); M79.672 Pain in left foot
CPT/HCPCS: 73718

== ENCOUNTER → 2024-07-10 10:01 | Outpatient (CLI) | payer OTHER, SELFPAY ==
--- NOTE | 2024-07-10 10:03 | DI.RAD.S_ITS ---
PROCEDURE: XR CHEST 2V INDICATIONS: SHORTNESS OF BREATH TECHNIQUE: 2 views of the chest were acquired. COMPARISON: None. FINDINGS: Surgical changes and devices: None. Lungs and pleura: Lungs are clear. No pleural effusions or pneumothorax. Mediastinum: Aortic arch calcifications. Mediastinal contours are otherwise normal. Heart size is normal. Bones and chest wall: No suspicious bony abnormalities. Soft tissues appear unremarkable. IMPRESSION: No acute cardiothoracic process. Dictated by: Khanh Trinidad M.D. on 07/10/2024 at 12:56 Approved by: Khanh Trinidad M.D. on 07/10/2024 at 12:56
== END ==
PROVIDERS: PCP Family Medicine; Referring Provider Family Medicine; Visit Provider Family Medicine
DX: R06.02 Shortness of breath (principal)
CPT/HCPCS: 71046

== ENCOUNTER → 2025-01-09 15:21 | Outpatient (CLI) | payer OTHER, SELFPAY ==
--- NOTE | 2025-01-09 15:22 | DI.US.S_ITS ---
PROCEDURE: US THYROID INDICATIONS: lump in throat, dysphagia TECHNIQUE: Real-time scanning was performed of the thyroid gland, with image documentation. COMPARISON: [facility], CT, CT CHEST W [facility], 01/25/2024, 15:50. FINDINGS: Thyroid: Right lobe measures 2.7 x 0.9 x 0.7 cm. Left lobe measures 2.9 x 0.7 x 0.6 cm. Isthmus is 0.3 cm thick. Echotexture is heterogeneous. No significant thyroid nodules. IMPRESSION: Small heterogeneous thyroid gland. No significant thyroid nodules. Dictated by: Andres Ventura M.D. on 01/10/2025 at 10:21 Approved by: Andres Ventura M.D. on 01/10/2025 at 10:39
== END ==
LOC: US 15:21
PROVIDERS: PCP Family Medicine; Referring Provider Family Medicine; Visit Provider Family Medicine
DX: R13.13 Dysphagia, pharyngeal phase (principal); R22.1 Localized swelling, mass and lump, neck
CPT/HCPCS: 76536

== ENCOUNTER → 2025-01-11 08:02 | Outpatient (CLI) | payer OTHER, SELFPAY ==
--- NOTE | 2025-01-11 08:04 | DI.RAD.S_ITS ---
PROCEDURE: FL UPPER GI SERIES INDICATIONS: pharyngeal dysphagia COMPARISON: None. FINDINGS: The patient describes a feeling of fullness in the pharynx during swallowing. This area is not well evaluated on this exam. Some images demonstrate possible prominent nasopharyngeal, pharyngeal or tonsillar soft tissues which may be further evaluated by CT soft tissue neck if indicated. 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 No suspicious abdominal calcifications. Visualized solid organ contours appear normal. Bony structures appear unremarkable. Esophagus: Esophageal mucosa is normal on air-contrast views. On single- contrast views, there is normal esophageal peristalsis. No strictures, extrinsic mass effects, or diverticula. There is normal transit of a calibrated barium tablet through the esophagus. Stomach: Small sliding hiatal hernia. Mild gastroesophageal reflux to the level of the distal esophagus. The stomach is normally distensible, with normal rugal fold thickness. No mucosal masses or ulcers. Pylorus and duodenal bulb appear normal in morphology. Duodenal folds are normal in thickness as well. IMPRESSION: Mildly prominent pharyngeal soft tissues as discussed above. Small sliding hiatal hernia. Mild gastroesophageal reflux. Dictated by: Stevo Rojas M.D. on 01/14/2025 at 8:30 Approved by: Stevo Rojas M.D. on 01/14/2025 at 8:35
== END ==
LOC: RAD 08:03
PROVIDERS: PCP Family Medicine; Referring Provider Family Medicine; Visit Provider Family Medicine
DX: R13.13 Dysphagia, pharyngeal phase (principal); R22.1 Localized swelling, mass and lump, neck; K44.9 Diaphragmatic hernia without obstruction or gangrene; K21.9 Gastro-esophageal reflux disease without esophagitis
CPT/HCPCS: 74240

== ENCOUNTER → 2025-01-30 07:38 | Outpatient (CLI) | payer OTHER, SELFPAY ==
--- NOTE | 2025-01-30 | DI.CT.S_ITS ---
PROCEDURE: CT SOFT TISSUE NECK W CON INDICATIONS: MEDIASTINAL CYST/ESOPHAGEAL PERISTALSIS TECHNIQUE: After the administration of intravenous contrast, 3.0 mm axial sections acquired from the sella to the aortic arch. 3 mm thick coronal and sagittal reformats were generated. COMPARISON: [facility], CT, CT CHEST W CON, 01/30/2025, 7:55. FINDINGS: Skull Base: The visualized intracranial contents, skull, and orbits are unremarkable. Visualized paranasal sinuses are clear. Pharynx and Larynx: The nasopharyngeal airway is patent and midline. Parapharyngeal soft tissues including palatine tonsils and base of the tongue are normal. Retropharyngeal space unremarkable. Normal appearance of the false and true vocal cords. Muscles and Fascial Planes: Fascial planes are well maintained. No abscess or mass lesion. Unremarkable appearance the cervical esophagus. Lymph Nodes: No evidence of adenopathy. Vasculature: Unremarkable. Submandibular and Parotid Glands: Normal in size and attenuation. Thyroid: Unremarkable. No enlarged or calcified nodules. Bones: No acute fracture. No osteolytic or blastic lesion is evident. Normal bone mineralization. 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 Para esophageal cystic lesion in the posterior mediastinum in the chest is partially imaged and further described on CT chest IMPRESSION: Unremarkable cervical esophagus. No adenopathy. Incidental degenerative changes in the cervical spine. Para-esophageal cystic structure in the upper chest is partially imaged and further described on dedicated CT chest report. Please refer to that report. Approved by: Jarod Mcgill M.D. on 01/31/2025 at 10:23
--- NOTE | 2025-01-30 | DI.CT.S_ITS ---
PROCEDURE: CT CHEST W CON INDICATIONS: MEDIASTINAL CYST/ESOPHAGEAL PERISTALSIS TECHNIQUE: After the administration of intravenous contrast, 5 mm thick sections acquired from the pulmonary apices to the posterior costophrenic angles. 1 mm axial lung, 5 mm thick coronal and sagittal reformats and 7 mm axial MIP were acquired. For radiation dose reduction, the following was used: automated exposure control, adjustment of mA and/or kV according to patient size. COMPARISON: [facility], CT, CT CHEST W CON, 03/06/2018, 12:15. [facility], CT, CT CHEST W CON, 01/25/2024, 15:50. FINDINGS: Image quality: Diagnostic. Lower Neck: No enlarged lymph nodes. Thyroid: No thyroid nodules which require sonographic follow up, per consensus guidelines. Axillae: No enlarged lymph nodes. Chest Wall: Unremarkable. Bones: Unremarkable. Lungs and Pleura: No pneumothorax or pleural effusions. No consolidation or suspicious nodules. Heart: Heart size is normal. No pericardial effusion. Thoracic Vessels: The aorta and pulmonary arteries demonstrate normal size. Mediastinum and [place]: No enlarged lymph nodes. Esophagus: No wall thickening. No hiatal hernia. Similar cystic lesion without internal complexity posterior to the midesophagus measuring 2.7 x 1.6 centimeter, previously 2.5 x 1.4 centimeter. Upper Abdomen: Hepatic cysts are present. IMPRESSION: Similar cystic lesion without internal complexity posterior to the midesophagus measuring 2.7 x 1.6 centimeter, previously 2.5 x 1.4 centimeter in 2023, 1.8 x 1.0 centimeter 2017. 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 Dictated by: Dean North M.D. on 01/30/2025 at 16:33 Approved by: Dean North M.D. on 01/30/2025 at 16:37
== END ==
LOC: CT 07:38
PROVIDERS: PCP Family Medicine; Referring Provider Family Medicine; Visit Provider Family Medicine
DX: K22.4 Dyskinesia of esophagus (principal); R13.13 Dysphagia, pharyngeal phase; Q34.1 Congenital cyst of mediastinum; K76.89 Other specified diseases of liver; M47.812 Spondylosis without myelopathy or radiculopathy, cervical region
CPT/HCPCS: 70491; 71260; Q9967